=== PATIENT | male | born 1955 | race Caucasian/White ===

== ENCOUNTER 2017-01-27 04:34 | Emergency (ER) | payer OTHER ==
[2017-01-27] MEDS ORDERED: DIPH,PERTUS(ACELL)TETVAC-LF 0.5 ML VIAL IM ONE (04:45)
[2017-01-27] MEDS ORDERED: RX INFO: IV CONTRAST WAS GIVEN 1 EACH MISC MISCELLANE PRN (04:46)
[2017-01-27 04:50] VITALS: PULSE 117; RESP 20; TEMP 97.5
[2017-01-27 04:52] LABS: Glucose,Whole Blood 171 mg/dL (75-99)
[2017-01-27 04:55] VITALS: BP 70/54
[2017-01-27 04:58] LABS: Basophils # (A) 0.2 k/uL (0-0.2); Basophils % (A) 1 %; CH 33.2; CHCM 35.9; Eosinophils # (A) 0.1 k/uL (0-0.7); Eosinophils % (A) 0 %; HCT 35.6 % (39.0-53.0); HDW 2.62; HGB 12.6 gm/dL (13.0-17.5); Luc # (Auto) 0.27; Luc % (Auto) 1; Lymphocytes # (A) 1.3 k/uL (1.0-4.8); Lymphocytes % (A) 5 %; MCH 32.8 pg (25.0-35.0); MCHC 35.3 g/dL (31.0-37.0); Monocytes # (A) 1.3 k/uL (0-1.0); Monocytes % (A) 5 %; Neutrophils # (A) 23.9 k/uL (1.3-7.7); Neutrophils % (A) 88 %; RBC 3.83 m/uL (4.30-5.90); RDW 14.1 % (11.5-15.5); WBC (Perox) 25.91
[2017-01-27 05:00] LABS: WBC 27.1 k/uL (3.8-10.6)
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
[2017-01-27 05:12] LABS: ALT 73 U/L (21-72); AST 61 U/L (17-59); Alcohol <10 mg/dL; Alkaline Phosphatase 62 U/L (38-126); Amylase 54 U/L (30-110); Anion Gap 18 mmol/L; Blood Urea Nitrogen 11 mg/dL (9-20); Calcium 9.4 mg/dL (8.4-10.2); Carbon Dioxide 17 mmol/L (22-30); Chloride 93 mmol/L (98-107); Glucose 150 mg/dL (74-99); Non-African American GFR(MDRD) 39 (>60 ml/min/1.73 sqM); Potassium 3.9 mmol/L (3.5-5.1); Sodium 128 mmol/L (137-145); Total Bilirubin 0.7 mg/dL (0.2-1.3); Total Protein 6.6 g/dL (6.3-8.2)
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
[2017-01-27 05:24] LABS: Creatine Kinase 614 U/L (55-170)
[2017-01-27 05:28] LABS: INR 1.2 (<1.1); Prothrombin Time 11.6 sec (9.0-12.0)
[2017-01-27 05:37] LABS: Troponin I <0.012 ng/mL (0.000-0.034)
[2017-01-27 05:39] LABS: Creatine Kinase MB 4.6 ng/mL (0.0-2.4)
--- NOTE | 2017-01-27 05:40 | CT ---
EXAM: CT Head Without Intravenous Contrast. CLINICAL HISTORY: Reason: Pain TECHNIQUE: Axial computed tomography images of the head/brain without intravenous contrast. CTDI is 60.3 mGy and DLP is 1271.4 mGy-cm This CT exam was performed using one or more of the following dose reduction techniques: automated exposure control, adjustment of the mA and/or kV according to patient size, and/or use of iterative reconstruction technique. COMPARISON: No relevant prior studies available. FINDINGS: Brain: Unremarkable. No hemorrhage. No significant white matter disease. No edema. Ventricles: Unremarkable. No ventriculomegaly. Bones: No acute fracture. Sinuses: Mild mucosal thickening seen within bilateral maxillary, ethmoid and sphenoid sinuses. There is complete opacification of the right frontal sinus and near-complete opacification of the left frontal sinus, possibly due to rhinosinusitis. Mastoid air cells: Mild fluid opacification of the left mastoid air cells. The right mastoid air cells are normally pneumatized. IMPRESSION: No evidence of acute intracranial abnormality. Paranasal sinus mucoperiosteal disease, as above.
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
[2017-01-27] MEDS ORDERED: ceFAZolin 1,000 MG in DEXTROSE/WATER 1 50ML.BAG IVPB STA (06:00)
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
[2017-01-27] MEDS ORDERED: SODIUM CHLORIDE 0.9% 500 ML IV STA (06:44)
[2017-01-27 06:50] LABS: Appearance,Urine Clear (Clear); Bilirubin,Urine Negative (Negative); Glucose,Urine (UA) Negative (Negative); Ketones,Urine Negative (Negative); Leukocyte Esterase,Urine Negative (Negative); Nitrite,Urine Negative (Negative); PH, Urine 5.5 (5.0-8.0); Protein,Urine Trace (Negative); Specific Gravity,Urine 1.036 (1.001-1.035); UA Billing (MACRO vs. MICRO) CHEM; Urobilinogen,Urine <2.0 mg/dL (<2.0)
--- NOTE | 2017-01-27 07:13 | P.PN ---
Progress Note - Text CT report of the neck was reviewed and there is a possible injury to the thyroid cartilage and transverse process fracture. A message was given for Dr. Chavez to discuss with receiving hospital whether they would like the patient intubated prior to transfer
== END 2017-01-27 06:46 | disposition other institution (70) ==
LOC: EC 04:34
DX: S11.81XA Laceration without foreign body of other specified part of neck, initial encounter (principal); J44.9 Chronic obstructive pulmonary disease, unspecified; I10 Essential (primary) hypertension; F32.9 Major depressive disorder, single episode, unspecified; F41.9 Anxiety disorder, unspecified; E78.5 Hyperlipidemia, unspecified; F17.200 Nicotine dependence, unspecified, uncomplicated; Z23 Encounter for immunization; Z79.51 Long term (current) use of inhaled steroids; Z79.899 Other long term (current) drug therapy; X78.9XXA Intentional self-harm by unspecified sharp object, initial encounter
CPT/HCPCS: 90471 ×2; 96361 ×2; 96365 ×2; 99285 ×2; 82075; 36415; 93005; 86900; 86901; 80053; 82150; 82550; 82553; 83605; 83690; 84484; 85025; 85610; 85730; 86850; 86920; 81003; 80306; 80320; 71010; 70491; 70450; 90715; L0120; Q9967; J0690

== ENCOUNTER 2017-02-11 21:41 | Inpatient (IN) | payer OTHER ==
[2017-02-11] MEDS ORDERED: SODIUM CHLORIDE 0.9% 1,000 ML IV ONE ×3 (22:20→23:38)
[2017-02-11] MEDS ORDERED: DIAZEPAM 5 MG TAB PO STA (22:20)
[2017-02-11 22:27] LABS: Basophils # (A) 0.1 k/uL (0-0.2); Basophils % (A) 1 %; Eosinophils # (A) 0.4 k/uL (0-0.7); Eosinophils % (A) 3 %; HDW 2.52; HGB 11.2 gm/dL (13.0-17.5); Luc # (Auto) 0.24; Luc % (Auto) 2; Lymphocytes # (A) 2.2 k/uL (1.0-4.8); Lymphocytes % (A) 19 %; MCH 32.1 pg (25.0-35.0); MCV 97.2 fL (80.0-100.0); Mean Platelet Volume 7.6; Monocytes # (A) 0.8 k/uL (0-1.0); Monocytes % (A) 7 %; Neutrophils # (A) 7.8 k/uL (1.3-7.7); Neutrophils % (A) 68 %; WBC 11.5 k/uL (3.8-10.6)
[2017-02-11 22:36] LABS: Calcium 8.6 mg/dL (8.4-10.2); Magnesium 2.5 mg/dL (1.6-2.3); Potassium 4.4 mmol/L (3.5-5.1); Total Bilirubin 0.3 mg/dL (0.2-1.3); Total Protein 6.4 g/dL (6.3-8.2)
[2017-02-11 22:39] LABS: Partial Thromboplastin Time 23.7 sec (22.0-30.0); Prothrombin Time 9.9 sec (9.0-12.0)
--- NOTE | 2017-02-11 22:48 | XR ---
EXAM: XR Chest, 1 View CLINICAL HISTORY: Reason: syncope TECHNIQUE: Frontal view of the chest. COMPARISON: Chest radiograph 01/27/2017 FINDINGS: Lungs: Lungs are clear except for mild right base subsegmental atelectasis. No focal pulmonary infiltrates or consolidations. Pleural space: Unremarkable. No pneumothorax. Heart: Heart size is within normal limits. Mediastinum: Unremarkable. Bones/joints: Imaged bony thorax is unremarkable. Upper abdomen: Mild elevation of right hemidiaphragm, unchanged. No significant change since 01/27/2017. IMPRESSION: Mild right base subsegmental atelectasis. No evidence of acute cardiopulmonary disease.
[2017-02-11 23:15] LABS: Appearance,Urine Clear (Clear); Bacteria,Urine Rare /hpf; Bilirubin,Urine Negative (Negative); Glucose,Urine (UA) Negative (Negative); Ketones,Urine Negative (Negative); Leukocyte Esterase,Urine Negative (Negative); Mucus,Urine Rare /hpf; Nitrite,Urine Negative (Negative); PH, Urine 5.5 (5.0-8.0); Particle Count 6206; Protein,Urine 1+ (Negative); RBC,Urine 2 /hpf (0-5); Specific Gravity,Urine 1.016 (1.001-1.035); Sperm,Urine Occasional /hpf; UA Billing (MACRO vs. MICRO) MICRO; Urobilinogen,Urine <2.0 mg/dL (<2.0); WBC,Urine 4 /hpf (0-5)
[2017-02-12] MEDS ORDERED: SODIUM CHLORIDE 0.9% 1,000 ML IV ONE (00:05)
[2017-02-12] MEDS ORDERED: NALOXONE 0.4 MG/ML 1 ML VIAL IV PRN (00:38)
--- NOTE | 2017-02-12 00:47 | ED ---
Syncope HPI - General Chief Complaint: Syncope Stated Complaint: Syncope Time Seen by Provider: 02/11/17 21:52 Source: patient Mode of arrival: wheelchair Limitations: no limitations - History of Present Illness Initial Comments: This patient is a 61-year-old man who presents because he has been feeling worsening of generalized fatigue, he has been having orthostatic symptoms, and this evening he passed out. Patient feels extremely lightheaded when he gets up and walks. He does note that he was discharged from the hospital Friday after an admission for an injury to his neck. He was at [facility]. He was started on new medications which included Celexa, gabapentin, and Seroquel. The patient does note that his by mouth intake has been decreased as she has not really had an appetite. Patient also did just finish a course of Bactrim. Patient is denying pain or other symptoms related to the neck injury. No fever or chills. No chest pain. MD Complaint: loss of consciousness, collapsed Onset/Timin -: days(s) Prodromal Symptoms: lightheaded Injuries Sustained Associated with Event: None Current Symptoms: lightheaded Context: standing up Treatments Prior to Arrival: none - Related Data Home Medications Medication Instructions Recorded Confirmed Lisinopril [Zestril] 20 mg PO DAILY 03/11/14 02/11/17 Albuterol Inhaler [Ventolin Hfa 1 - 2 puff INHALATION RT-Q6H PRN 06/21/16 Inhaler] Albuterol Nebulized [Ventolin 2.5 mg INHALATION RT-Q4H PRN 06/21/16 02/11/17 Nebulized] Hydrochlorothiazide [Hydrodiuril] 25 mg PO DAILY 06/21/16 02/11/17 Pravastatin Sodium [Pravachol] 40 mg PO HS 06/21/16 02/11/17 Umeclidinium [place] [Incruse 62.5 mcg INHALATION RT-DAILY 06/21/16 02/11/17 Ellipta] Atenolol [Tenormin] 25 mg PO DAILY 02/11/17 02/11/17 Budesonide/Formoterol Fumarate 2 puff INHALATION RT-BID 02/11/17 02/11/17 [Symbicort 160-4.5 Mcg Inhaler] Citalopram Hydrobromide [CeleXA] 20 mg PO BID 02/11/17 02/11/17 Gabapentin [Neurontin] 300 mg PO BID 02/11/17 02/11/17 QUEtiapine [SEROquel] 50 mg PO HS 02/11/17 02/11/17 Sulfamethox-Tmp 800-160Mg [Bactrim 1 tab PO Q12HR 02/11/17 02/11/17 DS 800-160 mg] Allergies Allergy/AdvReac Type Severity Reaction Status Date / Time No Known Allergies Allergy Verified 02/11/17 22:13 Review of Systems ROS Statement: Those systems with pertinent positive or pertinent negative responses have been documented in the HPI. ROS Other: All systems not noted in ROS Statement are negative. Constitutional: Denies: fever, chills, weakness ENT: Denies: throat pain Respiratory: Denies: cough, dyspnea, wheezes, hemoptysis Cardiovascular: Reports: syncope. Denies: chest pain, palpitations, edema Gastrointestinal: Denies: abdominal pain, vomiting, diarrhea, melena, hematochezia Genitourinary: Denies: dysuria, hematuria Musculoskeletal: Denies: back pain Skin: Denies: rash Neurological: Denies: headache, numbness, paresthesias Past Medical History Past Medical History: COPD, Hyperlipidemia, Hypertension Additional Past Medical History / Comment(s): Psychiatric history History of Any Multi-Drug Resistant Organisms: None Reported Past Surgical History: Orthopedic Surgery Additional Past Surgical History / Comment(s): Lt knee arthroscopy Past Anesthesia/Blood Transfusion Reactions: No Reported Reaction Past Psychological History: No Psychological Hx Reported, Anxiety, Depression Smoking Status: Current every day smoker Past Alcohol Use History: Heavy Past Drug Use History: None Reported - Past Family History Mother Family Medical History: No Reported History General Exam Limitations: no limitations General appearance: alert, other (Patient does appear to be moderately dehydrated) Head exam: Present: atraumatic, normocephalic Eye exam: Present: normal appearance. Absent: scleral icterus, conjunctival injection ENT exam: Present: mucous membranes dry Neck exam: Present: full ROM, other (Patient has recently healed laceration to the right anterior neck. There is no erythema. No evidence of hematoma or abscess.). Absent: tenderness, meningismus, lymphadenopathy Respiratory exam: Present: normal lung sounds bilaterally. Absent: respiratory distress, wheezes, rales, rhonchi, stridor Cardiovascular Exam: Present: regular rate, normal rhythm, normal heart sounds. Absent: systolic murmur, diastolic murmur, rubs, gallop GI/Abdominal exam: Present: soft. Absent: distended, tenderness, guarding, rebound, rigid Extremities exam: Present: normal inspection, other (Delayed capillary refill). Absent: pedal edema, calf tenderness Back exam: Present: normal inspection. Absent: CVA tenderness (R), CVA tenderness (L) Neurological exam: Present: alert Skin exam: Present: warm, dry, intact, other (Poor turgor). Absent: rash Course Vital Signs 02/11/17 02/11/17 02/11/17 21:46 22:15 22:23 Temperature 99.2 F Pulse Rate 77 64 Pulse Rate [ Sitting] Pulse Rate [ Standing] Pulse Rate [ 58 L Supine] Respiratory 20 Rate Blood Pressure 110/60 59/34 Blood Pressure [Right Arm Sitting] Blood Pressure [Right Arm Standing] Blood Pressure [Right Arm Supine] O2 Sat by Pulse 95 97 Oximetry 02/11/17 02/11/17 02/11/17 22:25 22:29 22:41 Temperature 97.8 F Pulse Rate 60 Pulse Rate [ Sitting] Pulse Rate [ Standing] Pulse Rate [ Supine] Respiratory 20 Rate Blood Pressure 62/40 82/51 85/49 Blood Pressure [Right Arm Sitting] Blood Pressure [Right Arm Standing] Blood Pressure [Right Arm Supine] O2 Sat by Pulse 94 L Oximetry 02/11/17 02/11/17 02/12/17 23:09 23:27 00:06 Temperature Pulse Rate 69 66 Pulse Rate [ 67 Sitting] Pulse Rate [ 76 Standing] Pulse Rate [ 66 Supine] Respiratory 20 18 Rate Blood Pressure 79/46 87/54 Blood Pressure 78/43 [Right Arm Sitting] Blood Pressure 70/42 [Right Arm Standing] Blood Pressure 78/41 [Right Arm Supine] O2 Sat by Pulse 96 96 Oximetry 02/12/17 02/12/17 02/12/17 00:39 00:53 01:17 Temperature 97.7 F Pulse Rate 68 71 Pulse Rate [ Sitting] Pulse Rate [ Standing] Pulse Rate [ Supine] Respiratory 16 Rate Blood Pressure 83/48 94/52 83/48 Blood Pressure [Right Arm Sitting] Blood Pressure [Right Arm Standing] Blood Pressure [Right Arm Supine] O2 Sat by Pulse 97 Oximetry 02/12/17 02/12/17 02/12/17 02:19 02:41 03:18 Temperature 97.8 F Pulse Rate 70 71 71 Pulse Rate [ Sitting] Pulse Rate [ Standing] Pulse Rate [ Supine] Respiratory 18 20 18 Rate Blood Pressure 88/50 94/51 94/53 Blood Pressure [Right Arm Sitting] Blood Pressure [Right Arm Standing] Blood Pressure [Right Arm Supine] O2 Sat by Pulse 96 96 96 Oximetry 02/12/17 03:32 Temperature 97.8 F Pulse Rate Pulse Rate [ 72 Sitting] Pulse Rate [ Standing] Pulse Rate [ Supine] Respiratory 18 Rate Blood Pressure Blood Pressure 97/54 [Right Arm Sitting] Blood Pressure [Right Arm Standing] Blood Pressure [Right Arm Supine] O2 Sat by Pulse 97 Oximetry EKG Findings - EKG Results: EKG: interpreted by DELORIS APARICIO, sinus rhythm (Rate 70 bpm), normal axis, normal QRS, normal ST/T, no acute changes Medical Decision Making - Medical Decision Making This patient 61-year-old man presenting after syncopal episode who does look moderately hypovolemic/dehydrated. She is responding well to fluid hydration here in the emergency department. Case discussed with admitting physician patient be admitted to have additional fluids and nephrology consultation as well. - Lab Data Result diagrams: 02/11/17 22:15 02/11/17 22:15 Lab Results 02/11/17 02/11/17 02/11/17 Range/Units 22:15 22:15 22:15 WBC 11.5 H (3.8-10.6) k/uL RBC 3.50 L (4.30-5.90) m/uL Hgb 11.2 L (13.0-17.5) gm/dL Hct 34.0 L (39.0-53.0) % MCV 97.2 (80.0-100.0) fL MCH 32.1 (25.0-35.0) pg MCHC 33.0 (31.0-37.0) g/dL RDW 14.0 (11.5-15.5) % Plt Count 369 (150-450) k/uL Neutrophils % 68 % Lymphocytes % 19 % Monocytes % 7 % Eosinophils % 3 % Basophils % 1 % Neutrophils # 7.8 H (1.3-7.7) k/uL Lymphocytes # 2.2 (1.0-4.8) k/uL Monocytes # 0.8 (0-1.0) k/uL Eosinophils # 0.4 (0-0.7) k/uL Basophils # 0.1 (0-0.2) k/uL PT 9.9 (9.0-12.0) sec INR 1.0 (<1.2) APTT 23.7 (22.0-30.0) sec D-Dimer 0.89 H (<0.60) mg/L FEU Sodium 135 L (137-145) mmol/L Potassium 4.4 (3.5-5.1) mmol/L Chloride 101 (98-107) mmol/L Carbon Dioxide 16 L (22-30) mmol/L Anion Gap 18 mmol/L BUN 70 H (9-20) mg/dL Creatinine 8.83 H* (0.66-1.25) mg/dL Est GFR (MDRD) Af Amer 8 (>60 ml/min/1.73 sqM) Est GFR (MDRD) Non-Af 6 (>60 ml/min/1.73 sqM) Glucose 86 (74-99) mg/dL Plasma Lactic Acid Zack (0.7-2.0) mmol/L Calcium 8.6 (8.4-10.2) mg/dL Magnesium 2.5 H (1.6-2.3) mg/dL Total Bilirubin 0.3 (0.2-1.3) mg/dL AST 34 (17-59) U/L ALT 63 (21-72) U/L Alkaline Phosphatase 60 (38-126) U/L Troponin I (0.000-0.034) ng/mL Total Protein 6.4 (6.3-8.2) g/dL Albumin 4.0 (3.5-5.0) g/dL Urine Color Urine Appearance (Clear) Urine pH (5.0-8.0) Ur Specific [place] (1.001-1.035) Urine Protein (Negative) Urine Glucose (UA) (Negative) Urine Ketones (Negative) Urine Blood (Negative) Urine Nitrite (Negative) Urine Bilirubin (Negative) Urine Urobilinogen (<2.0) mg/dL Ur Leukocyte Esterase (Negative) Urine RBC (0-5) /hpf Urine WBC (0-5) /hpf Urine Bacteria (None) /hpf Urine Mucus (None) /hpf Urine Sperm (None) /hpf Urine Osmolality (50-1400) mosm/kg Ur Random Creatinine mg/dL Ur Random Sodium (30-90) mmol/L Ur Random Potassium mmol/L Serum Alcohol mg/dL 02/11/17 02/11/17 02/11/17 Range/Units 22:15 22:40 22:40 WBC (3.8-10.6) k/uL RBC (4.30-5.90) m/uL Hgb (13.0-17.5) gm/dL Hct (39.0-53.0) % MCV (80.0-100.0) fL MCH (25.0-35.0) pg MCHC (31.0-37.0) g/dL RDW (11.5-15.5) % Plt Count (150-450) k/uL Neutrophils % % Lymphocytes % % Monocytes % % Eosinophils % % Basophils % % Neutrophils # (1.3-7.7) k/uL Lymphocytes # (1.0-4.8) k/uL Monocytes # (0-1.0) k/uL Eosinophils # (0-0.7) k/uL Basophils # (0-0.2) k/uL PT (9.0-12.0) sec INR (<1.2) APTT (22.0-30.0) sec D-Dimer (<0.60) mg/L FEU Sodium (137-145) mmol/L Potassium (3.5-5.1) mmol/L Chloride (98-107) mmol/L Carbon Dioxide (22-30) mmol/L Anion Gap mmol/L BUN (9-20) mg/dL Creatinine (0.66-1.25) mg/dL Est GFR (MDRD) Af Amer (>60 ml/min/1.73 sqM) Est GFR (MDRD) Non-Af (>60 ml/min/1.73 sqM) Glucose (74-99) mg/dL Plasma Lactic Acid Zack 1.5 (0.7-2.0) mmol/L Calcium (8.4-10.2) mg/dL Magnesium (1.6-2.3) mg/dL Total Bilirubin (0.2-1.3) mg/dL AST (17-59) U/L ALT (21-72) U/L Alkaline Phosphatase (38-126) U/L Troponin I <0.012 (0.000-0.034) ng/mL Total Protein (6.3-8.2) g/dL Albumin (3.5-5.0) g/dL Urine Color Urine Appearance (Clear) Urine pH (5.0-8.0) Ur Specific [place] (1.001-1.035) Urine Protein (Negative) Urine Glucose (UA) (Negative) Urine Ketones (Negative) Urine Blood (Negative) Urine Nitrite (Negative) Urine Bilirubin (Negative) Urine Urobilinogen (<2.0) mg/dL Ur Leukocyte Esterase (Negative) Urine RBC (0-5) /hpf Urine WBC (0-5) /hpf Urine Bacteria (None) /hpf Urine Mucus (None) /hpf Urine Sperm (None) /hpf Urine Osmolality (50-1400) mosm/kg Ur Random Creatinine mg/dL Ur Random Sodium (30-90) mmol/L Ur Random Potassium mmol/L Serum Alcohol <10 mg/dL 02/11/17 02/11/17 02/11/17 Range/Units 23:01 23:01 23:01 WBC (3.8-10.6) k/uL RBC (4.30-5.90) m/uL Hgb (13.0-17.5) gm/dL Hct (39.0-53.0) % MCV (80.0-100.0) fL MCH (25.0-35.0) pg MCHC (31.0-37.0) g/dL RDW (11.5-15.5) % Plt Count (150-450) k/uL Neutrophils % % Lymphocytes % % Monocytes % % Eosinophils % % Basophils % % Neutrophils # (1.3-7.7) k/uL Lymphocytes # (1.0-4.8) k/uL Monocytes # (0-1.0) k/uL Eosinophils # (0-0.7) k/uL Basophils # (0-0.2) k/uL PT (9.0-12.0) sec INR (<1.2) APTT (22.0-30.0) sec D-Dimer (<0.60) mg/L FEU Sodium (137-145) mmol/L Potassium (3.5-5.1) mmol/L Chloride (98-107) mmol/L Carbon Dioxide (22-30) mmol/L Anion Gap mmol/L BUN (9-20) mg/dL Creatinine (0.66-1.25) mg/dL Est GFR (MDRD) Af Amer (>60 ml/min/1.73 sqM) Est GFR (MDRD) Non-Af (>60 ml/min/1.73 sqM) Glucose (74-99) mg/dL Plasma Lactic Acid Zack (0.7-2.0) mmol/L Calcium (8.4-10.2) mg/dL Magnesium (1.6-2.3) mg/dL Total Bilirubin (0.2-1.3) mg/dL AST (17-59) U/L ALT (21-72) U/L Alkaline Phosphatase (38-126) U/L Troponin I (0.000-0.034) ng/mL Total Protein (6.3-8.2) g/dL Albumin (3.5-5.0) g/dL Urine Color Yellow Urine Appearance Clear (Clear) Urine pH 5.5 (5.0-8.0) Ur Specific [place] 1.016 (1.001-1.035) Urine Protein 1+ H (Negative) Urine Glucose (UA) Negative (Negative) Urine Ketones Negative (Negative) Urine Blood Negative (Negative) Urine Nitrite Negative (Negative) Urine Bilirubin Negative (Negative) Urine Urobilinogen <2.0 (<2.0) mg/dL Ur Leukocyte Esterase Negative (Negative) Urine RBC 2 (0-5) /hpf Urine WBC 4 (0-5) /hpf Urine Bacteria Rare H (None) /hpf Urine Mucus Rare H (None) /hpf Urine Sperm Occasional H (None) /hpf Urine Osmolality 632 (50-1400) mosm/kg Ur Random Creatinine 168.8 mg/dL Ur Random Sodium 106 H (30-90) mmol/L Ur Random Potassium 62.6 mmol/L Serum Alcohol mg/dL Disposition Clinical Impression: Acute renal failure, Hypotension Disposition: ADMITTED IP TO THIS HOSP Condition: Serious
[2017-02-12 01:16] LABS: Potassium,Urine Random 62.6 mmol/L
[2017-02-12] MEDS: SODIUM CHLORIDE 0.9% 1,000 ML IV SCH ×2 (01:16→20:25)
--- NOTE | 2017-02-12 01:43 | US ---
EXAM: US Retroperitoneal Limited, Renal CLINICAL HISTORY: Reason: acute renal failure TECHNIQUE: Real-time ultrasound of the retroperitoneum (limited) with image documentation. COMPARISON: No relevant prior studies available. FINDINGS: Right kidney: No evidence of renal obstruction or hydronephrosis. Right kidney measured 10.8 x 6.2 x 5.9 cm Left kidney: Kidneys are of normal size and echotexture bilaterally. 3.2 cm exophytic cyst along inferior pole of left kidney. No renal masses identified. No renal calculi are ultrasonographically evident. Left kidney measured 11.4 x 5.8 x 5.9 cm Bladder: Urinary bladder is unremarkable. Bilateral ureteral jets identified. IMPRESSION: Left renal cyst. No other significant renal abnormalities. No evidence of renal obstruction or hydronephrosis.
[2017-02-12 04:25] VITALS: BMI 31.5
[2017-02-12 10:24] LABS: Aty Lym Flag Marked; CH 31.2; Hypochromasia Slight
[2017-02-12 10:31] LABS: Basophils # (A) 0.1 k/uL (0-0.2); Basophils % (A) 1 %; CHCM 31.8; Eosinophils # (A) 0.3 k/uL (0-0.7); Eosinophils % (A) 3 %; HCT 28.4 % (39.0-53.0); HDW 2.51; Luc # (Auto) 0.19; Luc % (Auto) 2; Lymphocytes # (A) 1.2 k/uL (1.0-4.8); Lymphocytes % (A) 14 %; MCH 32.5 pg (25.0-35.0); MCHC 33.1 g/dL (31.0-37.0); MCV 98.3 fL (80.0-100.0); Mean Platelet Volume 7.4; Monocytes # (A) 0.6 k/uL (0-1.0); Monocytes % (A) 6 %; Neutrophils # (A) 6.3 k/uL (1.3-7.7); Neutrophils % (A) 74 %; RBC 2.89 m/uL (4.30-5.90); RDW 13.6 % (11.5-15.5); WBC 8.6 k/uL (3.8-10.6); WBC (Perox) 9.12
[2017-02-12 10:33] LABS: HGB 9.4 gm/dL (13.0-17.5)
[2017-02-12 10:46] LABS: Calcium 7.5 mg/dL (8.4-10.2); Potassium 5.1 mmol/L (3.5-5.1)
--- NOTE | 2017-02-12 10:52 | P.NPCON ---
History of Present Illness - Reason for Consult acute renal failure - History of Present Illness Reason for consultation: Acute kidney injury History of present illness: Patient is a 61-year-old male seen in renal consultation for acute kidney injury. His creatinine on 01/27/2017 was 1.8 and prior to that he was 0.7. His creatinine this admission is elevated at 8.83. Patient presented to the hospital with generalized weakness as well as lightheadedness and dizziness. Patient states he also passed out about twice. He states it was for a very short time and he got back up right away. He is noted to have systolic blood pressure in the range of 70s to 90s. Patient was recently admitted to [facility] for neck abscess and has just completed a course of Bactrim. It is noted that he was also taking hydrochlorothiazide at home. His urinalysis is quite benign. No history of diabetes. No vomiting or diarrhea. Does admit to using Aleve as needed. He states he took Aleve about twice in the last 1 week. He was having decrease in urination for the last few days but states his urine output has picked up while in the hospital. He is currently maintained on normal saline at 125 mL an hour. Denies any family history of renal disease. Vital signs are stable. General: The patient appeared well nourished and normally developed. HEENT: Head exam is unremarkable. Neck is without jugular venous distension. LUNGS: Lungs are clear to auscultation and percussion. Breath sounds decreased. HEART: Rate and Rhythm are regular. First and second heart sounds normal. No murmurs, rubs or gallops. ABDOMEN: Abdominal exam reveals normal bowel sounds. Non-tender and non- distended. No evidence of peritonitis. EXTREMITITES: No clubbing, cyanosis, or edema. Past Medical History Past Medical History: COPD, Hyperlipidemia, Hypertension Additional Past Medical History / Comment(s): Psychiatric history History of Any Multi-Drug Resistant Organisms: None Reported Past Surgical History: Orthopedic Surgery Additional Past Surgical History / Comment(s): Lt knee arthroscopy Past Anesthesia/Blood Transfusion Reactions: No Reported Reaction Past Psychological History: No Psychological Hx Reported, Anxiety, Depression Smoking Status: Current every day smoker Past Alcohol Use History: Heavy Past Drug Use History: None Reported - Past Family History Mother Family Medical History: No Reported History Medications and Allergies Home Medications Medication Instructions Recorded Confirmed Type Lisinopril [Zestril] 20 mg PO DAILY 03/11/14 02/11/17 History Albuterol Inhaler [Ventolin Hfa 1 - 2 puff INHALATION RT-Q6H PRN 06/21/16 History Inhaler] Albuterol Nebulized [Ventolin 2.5 mg INHALATION RT-Q4H PRN 06/21/16 02/11/17 History Nebulized] Hydrochlorothiazide [Hydrodiuril] 25 mg PO DAILY 06/21/16 02/11/17 History Pravastatin Sodium [Pravachol] 40 mg PO HS 06/21/16 02/11/17 History Umeclidinium [place] [Incruse 62.5 mcg INHALATION RT-DAILY 06/21/16 02/11/17 History Ellipta] Atenolol [Tenormin] 25 mg PO DAILY 02/11/17 02/11/17 History Budesonide/Formoterol Fumarate 2 puff INHALATION RT-BID 02/11/17 02/11/17 History [Symbicort 160-4.5 Mcg Inhaler] Citalopram Hydrobromide [CeleXA] 20 mg PO BID 02/11/17 02/11/17 History Gabapentin [Neurontin] 300 mg PO BID 02/11/17 02/11/17 History QUEtiapine [SEROquel] 50 mg PO HS 02/11/17 02/11/17 History Sulfamethox-Tmp 800-160Mg [Bactrim 1 tab PO Q12HR 02/11/17 02/11/17 History DS 800-160 mg] Allergies Allergy/AdvReac Type Severity Reaction Status Date / Time No Known Allergies Allergy Verified 02/11/17 22:13 Physical Exam Vitals: Vital Signs Temp Pulse Pulse Pulse Pulse Resp BP 02/12/17 07:57 97.5 F L 70 16 02/12/17 04:15 97.8 F 72 18 02/12/17 03:32 97.8 F 72 18 02/12/17 03:18 97.8 F 71 18 94/53 02/12/17 02:41 71 20 94/51 02/12/17 02:19 70 18 88/50 02/12/17 01:17 97.7 F 71 16 83/48 02/12/17 00:53 94/52 02/12/17 00:39 68 83/48 02/12/17 00:06 66 18 87/54 02/11/17 23:27 69 20 79/46 02/11/17 23:09 67 76 66 02/11/17 22:41 97.8 F 60 20 85/49 02/11/17 22:29 82/51 02/11/17 22:25 62/40 02/11/17 22:23 64 59/34 02/11/17 22:15 58 L 02/11/17 21:46 99.2 F 77 20 110/60 BP BP BP BP Pulse Ox 02/12/17 07:57 93/53 97 02/12/17 04:15 97/54 97 02/12/17 03:32 97/54 97 02/12/17 03:18 96 02/12/17 02:41 96 02/12/17 02:19 96 02/12/17 01:17 97 02/12/17 00:53 02/12/17 00:39 02/12/17 00:06 96 02/11/17 23:27 96 02/11/17 23:09 78/43 70/42 78/41 02/11/17 22:41 94 L 02/11/17 22:29 02/11/17 22:25 02/11/17 22:23 97 02/11/17 22:15 02/11/17 21:46 95 Intake and Output 02/11/17 02/12/17 02/12/17 22:59 06:59 14:59 Intake Total 4300 240 Output Total 700 850 Balance 3600 -610 Intake: Amount of Fluid Infused ( 4300 ml) Oral 240 Output: Urine 700 850 Straight 100 Other: # Voids 1 Weight 99.79 kg 102.6 kg Results - Lab Results Most recent lab results Calcium 8.6 mg/dL (8.4-10.2) 02/11/17 22:15 Magnesium 2.5 mg/dL (1.6-2.3) H 02/11/17 22:15 02/12/17 10:05 02/11/17 22:15 Assessment and Plan Plan: Assessment: #1. Nonoliguric acute kidney injury mostly prerenal secondary to hypotension and further worsened with the use of hydrochlorothiazide as well as NSAIDs. Rule out urinary retention. Urinalysis is quite benign. No evidence of hydronephrosis. #2. Hypotension related to antihypertensives. Also check cortisol level. #3. Metabolic acidosis secondary to acute kidney injury. Plan: Maintain normal saline at 1 25 mL an hour. Check postvoid residual and to insert Cote catheter greater than 250 mL present. Avoid nephrotoxic agents and hypotensive episodes. Diuretics held at this time. Check cortisol level. Add oral sodium bicarbonate supplementation. Repeat electrolytes in the morning. Thank you for the consultation. I will continue to follow the patient with you during his hospital stay.
--- NOTE | 2017-02-12 14:13 | P.HPIM ---
History of Present Illness H&P Date: 02/12/17 Chief Complaint: fatigue This a 61-year-WM, well known to me who presented to the ER for generalized fatigue, he has been having dizzyness, and this evening he passed out. Patient feels extremely lightheaded when he gets up and walks. He does note that he was discharged from the hospital Friday after an admission for an injury to his neck in an apparent suicide attempt. He was at [facility] for this. After trauma treatment, he was seen for depression. He was started on new medications which included Celexa, gabapentin, and Seroquel. He takes Lisiniopril/hctz for BP.Patient also did just finish a course of Bactrim. He states his oral intake has been decreased as he has not really had an appetite. Patient is denying pain or other symptoms related to the neck injury. No fever or chills. No chest pain, pressures, SOB. He was found to be in acute renal failure with significantly eleveated BUN/CR. Iv fluids have been started and offending meds held. Review of Systems All systems: negative Past Medical History Past Medical History: COPD, Hyperlipidemia, Hypertension History of Any Multi-Drug Resistant Organisms: None Reported Past Surgical History: Orthopedic Surgery Additional Past Surgical History / Comment(s): Lt knee arthroscopy. surgical repair of neck laceration Past Anesthesia/Blood Transfusion Reactions: No Reported Reaction Past Psychological History: No Psychological Hx Reported, Anxiety, Depression Additional Psychological History / Comment(s): recent suicide attempt Smoking Status: Current every day smoker Past Alcohol Use History: Heavy Past Drug Use History: None Reported - Past Family History Mother Family Medical History: No Reported History Medications and Allergies Home Medications Medication Instructions Recorded Confirmed Type Lisinopril [Zestril] 20 mg PO DAILY 03/11/14 02/11/17 History Albuterol Inhaler [Ventolin Hfa 1 - 2 puff INHALATION RT-Q6H PRN 06/21/16 History Inhaler] Albuterol Nebulized [Ventolin 2.5 mg INHALATION RT-Q4H PRN 06/21/16 02/11/17 History Nebulized] Hydrochlorothiazide [Hydrodiuril] 25 mg PO DAILY 06/21/16 02/11/17 History Pravastatin Sodium [Pravachol] 40 mg PO HS 06/21/16 02/11/17 History Umeclidinium [place] [Incruse 62.5 mcg INHALATION RT-DAILY 06/21/16 02/11/17 History Ellipta] Atenolol [Tenormin] 25 mg PO DAILY 02/11/17 02/11/17 History Budesonide/Formoterol Fumarate 2 puff INHALATION RT-BID 02/11/17 02/11/17 History [Symbicort 160-4.5 Mcg Inhaler] Citalopram Hydrobromide [CeleXA] 20 mg PO BID 02/11/17 02/11/17 History Gabapentin [Neurontin] 300 mg PO BID 02/11/17 02/11/17 History QUEtiapine [SEROquel] 50 mg PO HS 02/11/17 02/11/17 History Sulfamethox-Tmp 800-160Mg [Bactrim 1 tab PO Q12HR 02/11/17 02/11/17 History DS 800-160 mg] Allergies Allergy/AdvReac Type Severity Reaction Status Date / Time No Known Allergies Allergy Verified 02/11/17 22:13 Physical Exam Vitals: Vital Signs Temp Pulse Pulse Pulse Pulse Resp BP 02/12/17 11:27 98.7 F 68 20 02/12/17 07:57 97.5 F L 70 16 02/12/17 04:15 97.8 F 72 18 02/12/17 03:32 97.8 F 72 18 02/12/17 03:18 97.8 F 71 18 94/53 02/12/17 02:41 71 20 94/51 02/12/17 02:19 70 18 88/50 02/12/17 01:17 97.7 F 71 16 83/48 02/12/17 00:53 94/52 02/12/17 00:39 68 83/48 02/12/17 00:06 66 18 87/54 02/11/17 23:27 69 20 79/46 02/11/17 23:09 67 76 66 02/11/17 22:41 97.8 F 60 20 85/49 02/11/17 22:29 82/51 02/11/17 22:25 62/40 02/11/17 22:23 64 59/34 02/11/17 22:15 58 L 02/11/17 21:46 99.2 F 77 20 110/60 BP BP BP BP Pulse Ox 02/12/17 11:27 99/59 96 02/12/17 07:57 93/53 97 02/12/17 04:15 97/54 97 02/12/17 03:32 97/54 97 02/12/17 03:18 96 02/12/17 02:41 96 02/12/17 02:19 96 02/12/17 01:17 97 02/12/17 00:53 02/12/17 00:39 02/12/17 00:06 96 02/11/17 23:27 96 02/11/17 23:09 78/43 70/42 78/41 02/11/17 22:41 94 L 02/11/17 22:29 02/11/17 22:25 02/11/17 22:23 97 02/11/17 22:15 02/11/17 21:46 95 Intake and Output 02/11/17 02/12/17 02/12/17 22:59 06:59 14:59 Intake Total 4300 480 Output Total 700 1421 Balance 3600 -941 Intake: Amount of Fluid Infused ( 4300 ml) Oral 480 Output: Urine 700 1000 Straight 100 Post Void Residual 421 Other: # Voids 1 Weight 99.79 kg 102.6 kg - Constitutional General appearance: average body habitus - EENT Eyes: EOMI, PERRLA - Neck Neck: no lymphadenopathy, no thyromegaly Thyroid: bilateral: normal size - Respiratory Respiratory: bilateral: CTA - Cardiovascular Rhythm: regular Heart sounds: normal: S1, S2 Abnormal Heart Sounds: no systolic murmur - Gastrointestinal General gastrointestinal: no hepatomegaly, no splenomegaly - Musculoskeletal Musculoskeletal: generalized weakness Results CBC & Chem 7: 02/12/17 10:05 02/12/17 10:05 Labs: Abnormal Lab Results - Last 24 Hours (Table) 02/11/17 02/11/17 02/11/17 Range/Units 22:15 22:15 22:15 WBC 11.5 H (3.8-10.6) k/uL RBC 3.50 L (4.30-5.90) m/uL Hgb 11.2 L (13.0-17.5) gm/dL Hct 34.0 L (39.0-53.0) % Neutrophils # 7.8 H (1.3-7.7) k/uL D-Dimer 0.89 H (<0.60) mg/L FEU Sodium 135 L (137-145) mmol/L Chloride (98-107) mmol/L Carbon Dioxide 16 L (22-30) mmol/L BUN 70 H (9-20) mg/dL Creatinine 8.83 H* (0.66-1.25) mg/dL Glucose (74-99) mg/dL Calcium (8.4-10.2) mg/dL Magnesium 2.5 H (1.6-2.3) mg/dL Urine Protein (Negative) Urine Bacteria (None) /hpf Urine Mucus (None) /hpf Urine Sperm (None) /hpf Ur Random Sodium (30-90) mmol/L 02/11/17 02/11/17 02/12/17 Range/Units 23:01 23:01 10:05 WBC (3.8-10.6) k/uL RBC 2.89 L (4.30-5.90) m/uL Hgb 9.4 L D (13.0-17.5) gm/dL Hct 28.4 L (39.0-53.0) % Neutrophils # (1.3-7.7) k/uL D-Dimer (<0.60) mg/L FEU Sodium (137-145) mmol/L Chloride (98-107) mmol/L Carbon Dioxide (22-30) mmol/L BUN (9-20) mg/dL Creatinine (0.66-1.25) mg/dL Glucose (74-99) mg/dL Calcium (8.4-10.2) mg/dL Magnesium (1.6-2.3) mg/dL Urine Protein 1+ H (Negative) Urine Bacteria Rare H (None) /hpf Urine Mucus Rare H (None) /hpf Urine Sperm Occasional H (None) /hpf Ur Random Sodium 106 H (30-90) mmol/L 02/12/17 Range/Units 10:05 WBC (3.8-10.6) k/uL RBC (4.30-5.90) m/uL Hgb (13.0-17.5) gm/dL Hct (39.0-53.0) % Neutrophils # (1.3-7.7) k/uL D-Dimer (<0.60) mg/L FEU Sodium (137-145) mmol/L Chloride 110 H (98-107) mmol/L Carbon Dioxide 15 L (22-30) mmol/L BUN 66 H (9-20) mg/dL Creatinine 7.38 H* (0.66-1.25) mg/dL Glucose 73 L (74-99) mg/dL Calcium 7.5 L (8.4-10.2) mg/dL Magnesium (1.6-2.3) mg/dL Urine Protein (Negative) Urine Bacteria (None) /hpf Urine Mucus (None) /hpf Urine Sperm (None) /hpf Ur Random Sodium (30-90) mmol/L Thrombosis Risk Factor Assmnt - DVT/VTE Prophylaxis DVT/VTE Prophylaxis: Low risk, early ambulation encouraged - Choose All That Apply Any of the Below Risk Factors Present?: Yes Each Factor Represents 1 point: Age 41-60 years Other Risk Factors: No Other congenital or acquired thrombophilia - If yes, enter type in comment: No Thrombosis Risk Factor Assessment Total Risk Factor Score: 1 Thrombosis Risk Factor Assessment Level: Low Risk Assessment and Plan Plan: acute renal failure: most likely due to Bactrim/Lisinorpil/HCTZ/dehydration, consult Nephrology, iv fluid hydration, hol offending agents Depression with Recent Suicide attempt: consult psych as he is NOT tolreating his current meds, change celexa to Lexapro HTN: monitor BP Hyperlipidemai: outpt F/U COPD: continue updrafts as needed of Duoneb, spiriva He will be reevaluated in the next 24 hrs
[2017-02-12] MEDS ORDERED: ADENOSINE 3 MG/ML 2 ML VIAL IVP ONE (17:04)
[2017-02-13] MEDS: SODIUM CHLORIDE 0.9% 1,000 ML IV SCH ×4 (01:45→20:20)
[2017-02-13] MEDS: SODIUM BICARBONATE TAB 650 MG TAB PO SCH ×3 (01:45→20:21)
[2017-02-13 06:52] LABS: Basophils # (A) 0.1 k/uL (0-0.2); Basophils % (A) 1 %; CH 31.6; CHCM 32.7; Eosinophils # (A) 0.3 k/uL (0-0.7); Eosinophils % (A) 4 %; HCT 29.7 % (39.0-53.0); HDW 2.53; HGB 9.8 gm/dL (13.0-17.5); Luc # (Auto) 0.16; Luc % (Auto) 2; Lymphocytes # (A) 1.1 k/uL (1.0-4.8); Lymphocytes % (A) 16 %; MCHC 32.9 g/dL (31.0-37.0); MCV 97.1 fL (80.0-100.0); Mean Platelet Volume 7.2; Monocytes # (A) 0.6 k/uL (0-1.0); Monocytes % (A) 8 %; Neutrophils # (A) 5.1 k/uL (1.3-7.7); Neutrophils % (A) 70 %; RBC 3.06 m/uL (4.30-5.90); RDW 13.7 % (11.5-15.5); WBC 7.4 k/uL (3.8-10.6); WBC (Perox) 7.79
[2017-02-13 07:09] LABS: Potassium 5.3 mmol/L (3.5-5.1)
--- NOTE | 2017-02-13 09:18 | P.PN ---
Subjective Patient is seen in follow-up for acute kidney injury. His creatinine was 8.8 on admission and is down to 4.2 today. Patient presented with generalized weakness as well as syncopal episodes. He was extremely hypotensive on admission. Patient has just completed a course of Bactrim for an infection in his neck prior to admission. He was also taking Aleve for pain control and diuretics for hypertension as an outpatient. He is currently maintained on IV fluids. He feels well. States his urine output has improved significantly. Denies chest pain or shortness of breath. Vital signs are stable. General: The patient appeared well nourished and normally developed. HEENT: Head exam is unremarkable. Neck is without jugular venous distension. LUNGS: Lungs are clear to auscultation and percussion. Breath sounds decreased. HEART: Rate and Rhythm are regular. First and second heart sounds normal. No murmurs, rubs or gallops. ABDOMEN: Abdominal exam reveals normal bowel sounds. Non-tender and non- distended. No evidence of peritonitis. EXTREMITITES: No clubbing, cyanosis, or edema. Objective - Vital Signs Vital signs: Vital Signs Temp 98.1 F 02/13/17 04:00 Pulse 70 02/13/17 04:00 Resp 18 02/13/17 04:00 BP 106/63 02/13/17 04:00 Pulse Ox 95 02/13/17 04:00 Intake & Output 02/12/17 02/13/17 02/13/17 18:59 06:59 18:59 Intake Total 1720 1480 240 Output Total 3221 4200 1700 Balance -1501 -2720 -1460 Weight 101 kg Intake: Intake, IV Titration 1000 1000 Amount Sodium Chloride 0.9% 1, 1000 1000 000 ml @ 125 mls/hr IV . Q8H [facility] Rx#:[id number] Oral 720 480 240 Output: Urine 2800 4200 1700 Post Void Residual 421 Other: Voiding Method Indwelling Catheter Indwelling Catheter Indwelling Catheter # Voids 1 - Labs CBC & Chem 7: 02/13/17 05:37 02/13/17 05:37 Labs: Abnormal Lab Results - Last 24 Hours (Table) 02/12/17 02/12/17 02/13/17 Range/Units 10:05 10:05 05:37 RBC 2.89 L 3.06 L (4.30-5.90) m/uL Hgb 9.4 L D 9.8 L (13.0-17.5) gm/dL Hct 28.4 L 29.7 L (39.0-53.0) % Potassium (3.5-5.1) mmol/L Chloride 110 H (98-107) mmol/L Carbon Dioxide 15 L (22-30) mmol/L BUN 66 H (9-20) mg/dL Creatinine 7.38 H* (0.66-1.25) mg/dL Glucose 73 L (74-99) mg/dL Calcium 7.5 L (8.4-10.2) mg/dL 02/13/17 Range/Units 05:37 RBC (4.30-5.90) m/uL Hgb (13.0-17.5) gm/dL Hct (39.0-53.0) % Potassium 5.3 H (3.5-5.1) mmol/L Chloride 110 H (98-107) mmol/L Carbon Dioxide 17 L (22-30) mmol/L BUN 50 H (9-20) mg/dL Creatinine 4.20 H (0.66-1.25) mg/dL Glucose (74-99) mg/dL Calcium 8.0 L (8.4-10.2) mg/dL Assessment and Plan Plan: Assessment: #1. Nonoliguric acute kidney injury mostly prerenal secondary to hypotension and further worsened with the use of hydrochlorothiazide as well as NSAIDs. Urinalysis is quite benign. No evidence of hydronephrosis. Improving. Creatinine was 8.8 on admission and is down to 4.2 today. #2. Hypotension related to antihypertensives. Cortisol level IX. #3. Metabolic acidosis secondary to acute kidney injury. #4. Mild hyperkalemia secondary to acute kidney injury and metabolic acidosis. Plan: Maintain normal saline at 125 mL an hour. Avoid nephrotoxic agents and hypotensive episodes. Diuretics held at this time. Continue oral sodium bicarbonate supplementation. Low potassium diet. Repeat electrolytes in the morning.
[2017-02-13] MEDS: IPRATROPIUM-ALBUTEROL 3 ML NEB INHALATION SCH ×3 (09:30→20:38)
--- NOTE | 2017-02-13 14:14 | P.CN ---
Psychiatric Consult - . Consult date: 02/13/17 Consult:: 02/13/17 13:51 DATE OF SERVICE: 02/13/2017 IDENTIFYING DATA: This patient is a 61-year-old male admitted to sixth floor medical bed for acute renal failure(acute kidney injury) . HISTORY OF PRESENT ILLNESS: The patient presents with history of anxiety and depressed mood related to a number of setbacks. Patient states that he has not been working for 8 months now and that he just received notification from the nurses licensing board related to a complaint. That along with the fact his mother is in a alf with dementia and his sister who has been primarily managing her affairs became ill so that he has had to help out. Patient reports that he was taking Xanax for about 25 years for anxiety and then he was drinking a bit more than he should have and became despondent and cut his neck in an attempt to kill himself. He was admitted to [facility] on the medical surgical floor there for 3-4 days he was then cleared and transferred to the psychiatric floor. While there he was tapered off of Xanax over 7 days. Was then started on gabapentin, Seroquel, and Celexa. Then in the last few days he began having problems with his blood pressure, he fell several times and it became clear that he also had some kidney issues. This led to a creatinine of 8.8 he was admitted here fluids were pushed and it's improving. Patient reports that in the last 3 days he's been off of his psychiatric meds and he is feeling better, although he is beginning to feel a bit anxious. Patient denies suicidal ideation. He has future plans with goal to be employed has applied for a couple of jobs. His 21-year-old son lives with him and his ex - is supportive of him. PAST PSYCHIATRIC HISTORY: Patient denies any previous psychiatric problems other than anxiety the only psychiatric hospitalization was the one that just occurred at [facility]. PAST MEDICAL HISTORY: Per record. ALLERGIES: No known drug allergies. CHEMICAL DEPENDENCY HISTORY: Patient reports that he was drinking more alcohol prior to his suicide attempt, says that he was drinking about 4-5 drinks 4-5 days per week. Denies other drugs of abuse. FAMILY PSYCHIATRIC HISTORY: Denies family history of psychiatric problems. FAMILY CHEMICAL DEPENDENCY HISTORY: Denies. LEGAL HISTORY: Denies. SOCIAL HISTORY: Patient is a nurse, he is he and his ex- are friends and she is a support for him. Patient's 21-year-old son lives with him. They have another son who is living with his ex-. Patient is unemployed and recognizes that that lack of work has not been helpful to him. He is worried about his mother.. MENTAL STATUS EXAM: Patient alert and oriented 3, good eye contact, fair groomed in hospital attire. Speech normal volume, rate and production. Coherent, logical and goal directed thought process. No SONU, no FOI. No TB/TW/ TI Denied auditory and visual hallucinations. Denied paranoid ideation, delusions or IOR. Memory intact Cognition average Mood neutral, affect full range, decreased intensity, congruent with mood. Denies suicidal ideation, denies homicidal ideation. Insight partial; Judgment grossly intact for treatment purposes . IMPRESSIONS: 61-year-old male, made a serious suicide attempt after several stressors, and increase of etoh intake. Patient was tapered off of his benzodiazepine of 25 years in a week's time, he was also prescribed Seroquel at bedtime, gabapentin throughout the day and Celexa for an antidepressant. He returned home never quite feeling back to his normal self, feeling cognitively impaired, and not being able to drive. He then began to have medical problems related to hypotension and an acute renal injury. With creatinine of 8.8 leading to hospitalization here. His creatinine is now down to 4.4 he is cognitively clear. Patient more than likely has a diagnosis of depression, alcohol use disorder, moderate use, in early remission. Patient is not suicidal, no evidence of psychosis, no past history of psychiatric illnesses or admissions other than the one just previous. Patient does not need inpatient psychiatry treatment. Depression, unspecified Alcohol use disorder, moderate, in early remission PLAN: Patient was taking Xanax for a number of years and I would recommend he have a slower taper than what occurred in the hospital. 1.Clonazepam 1 mg by mouth twice a day for 30 days, then reduce by 50% (0.5mg BID)for 30 days, reduced by another 50% (.25mg BID)for 30 days, reduce by 50%( 0.25mg QDAY) for 30 days, then stop. 2.Remeron 15 mg for both its antidepressant/antianxiety/sleep properties. Due to shortage of psychiatrists in the area primary care doctor should be able to prescribe these meds until he is able to meet with a psychiatrist. I spoke to the case finisher of the unit Shelley, and she will have the clinical social worker meet with patient and refer to [facility]. 02/13/17 14:15
--- NOTE | 2017-02-13 19:08 | P.PN ---
Subjective Principal diagnosis: Acute renal failure, most likely due to Bactrim lisinopril hydrochlorothiazide and dehydration Patient is admitted for acute kidney injury. His creatinine was a finding on admission was found to 4.2 today. Patient presented with generalized weakness as well as syncopal episode. He was extremely hypotensive on admission and is currently on IV fluids. Urinary output has improved Objective - Vital Signs Vital signs: Vital Signs Temp 97.5 F L 02/13/17 15:22 Pulse 82 02/13/17 15:22 Resp 20 02/13/17 15:22 BP 121/82 02/13/17 15:22 Pulse Ox 96 02/13/17 15:22 Intake & Output 02/12/17 02/13/17 02/13/17 18:59 06:59 18:59 Intake Total 1720 1480 1720 Output Total 3221 4200 3250 Balance -1501 -4680 -1530 Weight 101 kg Intake: Intake, IV Titration 1000 1000 1000 Amount Sodium Chloride 0.9% 1, 1000 1000 1000 000 ml @ 125 mls/hr IV . Q8H [facility] Rx#:[id number] Oral 720 480 720 Output: Urine 2800 4200 3250 Post Void Residual 421 Other: Voiding Method Indwelling Catheter Indwelling Catheter Indwelling Catheter # Voids 1 - Exam General: [Patient awake, alert and oriented times 3. Patient in no acute distress.] HEENT: [PERRL. EOMI. No pharyngeal erythema or exudate.] Neck: [No adenopathy.] Cardiac: [Heart regular in rate and rhythm. No S3. No S4. No clicks, rubs. No murmur.] Lungs: [Clear to auscultation bilaterally.] Abdomen: [No mass. No organomegaly. Bowel sounds presnt and normoactive in all 4 quadrants.] Extremes: [No edema no cyanosis no claudication normal pulses] : [] Musculoskeletal: [No joint erythema, edema or tenderness.] Skin: [No rash.] Neurologic: [No lateralizing deficits. CN II - XII grossly intact.] Lymphatic: [No adenopathy.] - Labs CBC & Chem 7: 02/13/17 05:37 02/13/17 05:37 Labs: Abnormal Lab Results - Last 24 Hours (Table) 02/13/17 02/13/17 Range/Units 05:37 05:37 RBC 3.06 L (4.30-5.90) m/uL Hgb 9.8 L (13.0-17.5) gm/dL Hct 29.7 L (39.0-53.0) % Potassium 5.3 H (3.5-5.1) mmol/L Chloride 110 H (98-107) mmol/L Carbon Dioxide 17 L (22-30) mmol/L BUN 50 H (9-20) mg/dL Creatinine 4.20 H (0.66-1.25) mg/dL Calcium 8.0 L (8.4-10.2) mg/dL Assessment and Plan (1) Acute renal failure Narrative/Plan: #1 nonoliguric acute kidney injury most the prerenal secondary to hypotension further worsened with use of hydrochlorothiazide as well as NSAIDs #2 hypotension related to antihypertensives #3 metabolic acidosis secondary to a kidney injury #4 mild hyperkalemia secondary to acute anemia and metabolic Plan: IV fluids normal saline Avoid nephrotoxic agents and hypotensive episodes Diuretics were held at this time Status: Acute
[2017-02-14] MEDS: SODIUM CHLORIDE 0.9% 1,000 ML IV SCH ×4 (00:14→11:40)
[2017-02-14 04:27] VITALS: RESP 16
[2017-02-14 07:59] LABS: Calcium 8.1 mg/dL (8.4-10.2); Potassium 5.1 mmol/L (3.5-5.1)
[2017-02-14] MEDS ORDERED: SODIUM BICARBONATE TAB 650 MG TAB PO SCH (08:03)
--- NOTE | 2017-02-14 08:31 | P.PN ---
Subjective Patient is seen in follow-up for acute kidney injury. His creatinine was 8.8 on admission and is down to 1.88 today. Patient presented with generalized weakness as well as syncopal episodes. He was extremely hypotensive on admission. Patient has just completed a course of Bactrim for an infection in his neck prior to admission. He was also taking Aleve for pain control and diuretics for hypertension as an outpatient. He is currently maintained on IV fluids. He feels well. States his urine output has improved significantly. Denies chest pain or shortness of breath. No active complaints at this time. Vital signs are stable. General: The patient appeared well nourished and normally developed. HEENT: Head exam is unremarkable. Neck is without jugular venous distension. LUNGS: Lungs are clear to auscultation and percussion. Breath sounds decreased. HEART: Rate and Rhythm are regular. First and second heart sounds normal. No murmurs, rubs or gallops. ABDOMEN: Abdominal exam reveals normal bowel sounds. Non-tender and non- distended. No evidence of peritonitis. EXTREMITITES: No clubbing, cyanosis, or edema. Objective - Vital Signs Vital signs: Vital Signs Temp 97.9 F 02/14/17 04:00 Pulse 84 02/14/17 04:00 Resp 16 02/14/17 04:00 BP 138/78 02/14/17 04:00 Pulse Ox 96 02/14/17 04:00 Intake & Output 02/13/17 02/14/17 02/14/17 18:59 06:59 18:59 Intake Total 1720 Output Total 3250 1500 Balance -1530 -1500 Weight 100 kg Intake: Intake, IV Titration 1000 Amount Sodium Chloride 0.9% 1, 1000 000 ml @ 125 mls/hr IV . Q8H [facility] Rx#:[id number] Oral 720 Output: Urine 3250 1500 Other: Voiding Method Indwelling Catheter Indwelling Catheter # Voids 1 - Labs CBC & Chem 7: 02/13/17 05:37 02/14/17 06:43 Labs: Abnormal Lab Results - Last 24 Hours (Table) 02/14/17 Range/Units 06:43 Chloride 110 H (98-107) mmol/L Carbon Dioxide 21 L (22-30) mmol/L BUN 25 H (9-20) mg/dL Creatinine 1.88 H (0.66-1.25) mg/dL Calcium 8.1 L (8.4-10.2) mg/dL Assessment and Plan Plan: Assessment: #1. Nonoliguric acute kidney injury mostly prerenal secondary to hypotension and further worsened with the use of hydrochlorothiazide as well as NSAIDs. Urinalysis is quite benign. No evidence of hydronephrosis. Improving. Creatinine was 8.8 on admission and is down to 1.88 today. #2. Hypotension related to antihypertensives. Cortisol level 9. #3. Metabolic acidosis secondary to acute kidney injury. Improved. #4. Mild hyperkalemia secondary to acute kidney injury and metabolic acidosis. Plan: Decreased rate of normal saline to 75 mL an hour. Avoid nephrotoxic agents and hypotensive episodes. Diuretics held at this time. Continue oral sodium bicarbonate supplementation - dose decreased. Low potassium diet. Repeat electrolytes in the morning. Stable to be discharged home from nephrology standpoint. He may resume atenolol but continue to hold VALDEMAR inhibitor and thiazide diuretic for now. He' ll need to follow-up as an outpatient in the next 2 weeks.
[2017-02-14] MEDS: IPRATROPIUM-ALBUTEROL 3 ML NEB INHALATION SCH ×2 (08:57→13:09)
[2017-02-14 15:25] VITALS: PULSE 83
[2017-02-14 17:53] VITALS: BP 139/83; TEMP 98.3
--- NOTE | 2017-02-14 18:54 | P.DS ---
Providers Date of admission: 02/12/17 00:38 Expected date of discharge: 02/14/17 Attending physician: Ashish Castaneda Consults: 02/12/17 00:39 Consult Physician Routine Consulting Provider: Morena Tian Consult Reason/Comments: acute renal failure Do you want consulting provider notified?: Yes 02/12/17 14:15 Consult Physician Routine Consulting Provider: Jesi Cortez Consult Reason/Comments: depression, med changes Do you want consulting provider notified?: Yes Primary care physician: Ashish Castaneda - Discharge Diagnosis(es) (1) Acute renal failure Significantly improved General: [Patient awake, alert and oriented times 3. Patient in no acute distress.] HEENT: [PERRL. EOMI. No pharyngeal erythema or exudate.] Neck: [No adenopathy.] Cardiac: [Heart regular in rate and rhythm. No S3. No S4. No clicks, rubs. No murmur.] Lungs: [Clear to auscultation bilaterally.] Abdomen: [No mass. No organomegaly. Bowel sounds presnt and normoactive in all 4 quadrants.] Extremes: [No edema no cyanosis no claudication normal pulses] : [] Musculoskeletal: [No joint erythema, edema or tenderness.] Skin: [No rash.] Neurologic: [No lateralizing deficits. CN II - XII grossly intact.] Lymphatic: [No adenopathy.] Current Visit: Yes Status: Acute Patient Condition at Discharge: Stable Plan - Discharge Summary New Discharge Prescriptions: New clonazePAM [KlonoPIN] 1 mg PO BID #60 tablet Mirtazapine [Remeron] 15 mg PO HS #30 tab No Action Umeclidinium [place] [Incruse Ellipta] 62.5 mcg INHALATION RT-DAILY Albuterol Inhaler [Ventolin Hfa Inhaler] 1 - 2 puff INHALATION RT-Q6H PRN PRN Reason: Shortness Of Breath Albuterol Nebulized [Ventolin Nebulized] 2.5 mg INHALATION RT-Q4H PRN PRN Reason: Shortness Of Breath Budesonide/Formoterol Fumarate [Symbicort 160-4.5 Mcg Inhaler] 2 puff INHALATION RT-BID Discharge Medication List Albuterol Inhaler [Ventolin Hfa Inhaler] 1 - 2 puff INHALATION RT-Q6H PRN [History] Albuterol Nebulized [Ventolin Nebulized] 2.5 mg INHALATION RT-Q4H PRN 06/21/16 [ History] Umeclidinium [place] [Incruse Ellipta] 62.5 mcg INHALATION RT-DAILY 06/21/16 [ History] Budesonide/Formoterol Fumarate [Symbicort 160-4.5 Mcg Inhaler] 2 puff INHALATION RT-BID 02/11/17 [History] Mirtazapine [Remeron] 15 mg PO HS #30 tab 02/14/17 [Rx] clonazePAM [KlonoPIN] 1 mg PO BID #60 tablet 02/14/17 [Rx] Follow up Appointment(s)/Referral(s): [facility] [Outside] - 02/18/17 11:30 am (02.18.2017 at 11:30 am with Cisco Trujillo) Ashish Castaneda MD [Primary Care Provider] - 1-2 days Activity/Diet/Wound Care/Special Instructions: We'll make referral to a therapist as an outpatient
[2017-02-14] MEDS ORDERED: MIRTAZAPINE 15 MG TAB PO SCH (21:00)
[2017-02-14] MEDS ORDERED: clonazePAM 1 MG TAB PO SCH (21:00)
== END 2017-02-14 20:38 | disposition home or self-care (01) | DRG 683 ==
LOC: EC 21:41 → 6SEL 02-12 00:38
PROVIDERS: ADMIT Family Medicine; ATTEND Family Medicine
DX: N17.9 Acute kidney failure, unspecified (principal); E87.2 Acidosis; I95.9 Hypotension, unspecified; E86.0 Dehydration; E86.1 Hypovolemia; E87.5 Hyperkalemia; I10 Essential (primary) hypertension; F10.21 Alcohol dependence, in remission; T50.2X5A Adverse effect of carbonic-anhydrase inhibitors, benzothiadiazides and other diuretics, initial encounter; T43.225A Adverse effect of selective serotonin reuptake inhibitors, initial encounter; T37.0X5A Adverse effect of sulfonamides, initial encounter; T46.4X5A Adverse effect of angiotensin-converting-enzyme inhibitors, initial encounter; T39.315A Adverse effect of propionic acid derivatives, initial encounter; R55 Syncope and collapse; E78.5 Hyperlipidemia, unspecified; J44.9 Chronic obstructive pulmonary disease, unspecified; F32.9 Major depressive disorder, single episode, unspecified; D64.9 Anemia, unspecified; F41.9 Anxiety disorder, unspecified; R29.6 Repeated falls; R53.1 Weakness; F17.200 Nicotine dependence, unspecified, uncomplicated; Z91.81 History of falling; Z56.0 Unemployment, unspecified; Z79.51 Long term (current) use of inhaled steroids; Z79.899 Other long term (current) drug therapy; Z91.5 Personal history of self-harm; Z81.8 Family history of other mental and behavioral disorders; Z87.828 Personal history of other (healed) physical injury and trauma; Z86.19 Personal history of other infectious and parasitic diseases; Z79.1 Long term (current) use of non-steroidal anti-inflammatories (NSAID)
CPT/HCPCS: 36415; 51798; 71010; 76770; 80048; 80053; 80320; 81001; 82533; 82570; 83605; 83735; 83935; 84133; 84300; 84484; 85025; 85379; 85610; 85730; 93005; 94640

== ENCOUNTER 2017-02-20 21:25 | Emergency (ER) | payer OTHER ==
[2017-02-20 21:31] VITALS: BP 144/91; PULSE 91; RESP 18; TEMP 97.2
--- NOTE | 2017-02-20 21:52 | ED ---
Lower Extremity Injury HPI - General Chief Complaint: Extremity Injury, Lower Stated Complaint: Foot Pain Time Seen by Provider: 02/20/17 21:39 Source: patient, RN notes reviewed, old records reviewed Mode of arrival: ambulatory Limitations: no limitations - History of Present Illness Initial Comments: 61-year-old male presents the ED chief complaint of left foot pain for the past 2 days. He reports he does not remember doing anything specifically to cause the pain. He states that he woke up with the pain. He denies any previous injuries to the foot. He does have a history of acute kidney injury recently. He denies any other associated symptoms with the foot pain. He states is worse with ambulation. Denies any peripheral paresthesias. He states the pain is over the entire foot but is worse over the dorsum of the foot and extends all the way around the ankle. Patient denies any recent fever, chills, shortness of breath, chest pain, back pain, abdominal pain, nausea vomiting, numbness or tingling, dysuria or hematuria, constipation or diarrhea, headaches or visual changes, or any other current symptoms - Related Data Home Medications Medication Instructions Recorded Confirmed Albuterol Inhaler [Ventolin Hfa 1 - 2 puff INHALATION RT-Q6H PRN 06/21/16 Inhaler] Albuterol Nebulized [Ventolin 2.5 mg INHALATION RT-Q4H PRN 06/21/16 02/11/17 Nebulized] Umeclidinium [place] [Incruse 62.5 mcg INHALATION RT-DAILY 06/21/16 02/11/17 Ellipta] Budesonide/Formoterol Fumarate 2 puff INHALATION RT-BID 02/11/17 02/11/17 [Symbicort 160-4.5 Mcg Inhaler] Previous Rx's Medication Instructions Recorded Mirtazapine [Remeron] 15 mg PO HS #30 tab 02/14/17 clonazePAM [KlonoPIN] 1 mg PO BID #60 tablet 02/14/17 Acetaminophen-Codeine 300-30mg 1 tab PO Q8H PRN #10 tablet 02/20/17 [Tylenol #3] Allergies Allergy/AdvReac Type Severity Reaction Status Date / Time No Known Allergies Allergy Verified 02/20/17 21:31 Review of Systems ROS Statement: Those systems with pertinent positive or pertinent negative responses have been documented in the HPI. ROS Other: All systems not noted in ROS Statement are negative. Past Medical History Past Medical History: COPD, Hyperlipidemia, Hypertension Additional Past Medical History / Comment(s): Psychiatric history History of Any Multi-Drug Resistant Organisms: None Reported Past Surgical History: Orthopedic Surgery Additional Past Surgical History / Comment(s): Lt knee arthroscopy. surgical repair of neck laceration Past Anesthesia/Blood Transfusion Reactions: No Reported Reaction Past Psychological History: No Psychological Hx Reported, Anxiety, Depression Smoking Status: Current every day smoker Past Alcohol Use History: Heavy Past Drug Use History: None Reported - Past Family History Mother Family Medical History: No Reported History General Exam - General Exam Comments Initial Comments: This is a 61-year-old male. No acute distress. Limitations: no limitations General appearance: alert, in no apparent distress Head exam: Present: atraumatic, normocephalic, normal inspection Eye exam: Present: normal appearance, PERRL, EOMI. Absent: scleral icterus, conjunctival injection, periorbital swelling ENT exam: Present: normal exam, mucous membranes moist Neck exam: Present: normal inspection. Absent: tenderness, meningismus, lymphadenopathy Respiratory exam: Present: normal lung sounds bilaterally. Absent: respiratory distress, wheezes, rales, rhonchi, stridor Cardiovascular Exam: Present: regular rate, normal rhythm, normal heart sounds. Absent: systolic murmur, diastolic murmur, rubs, gallop, clicks GI/Abdominal exam: Present: soft, normal bowel sounds. Absent: distended, tenderness, guarding, rebound, rigid Extremities exam: Present: normal inspection, full ROM, normal capillary refill. Absent: tenderness, pedal edema, joint swelling, calf tenderness Left Upper Leg exam: Present: normal inspection, full ROM Knee exam: Present: normal inspection, full ROM Lower Leg exam: Present: normal inspection, full ROM Ankle exam: Present: normal inspection, full ROM, tenderness (Patient reports tenderness over the lateral medial malleolus. Mild erythema over the dorsum of the foot extending to the ankle.) Foot/Toe exam: Present: full ROM, tenderness, erythema (Patient is mild erythema over the dorsum of the foot.). Absent: normal inspection, swelling, abrasion Neurovascular tendon exam: Present: no vascular compromise Gait: observed and limited by pain Back exam: Present: normal inspection Neurological exam: Present: alert, oriented X3, CN II-XII intact Psychiatric exam: Present: normal affect, normal mood Skin exam: Present: warm, dry, intact, normal color. Absent: rash Course Vital Signs 02/20/17 21:29 Temperature 97.2 F L Pulse Rate 91 Respiratory 18 Rate Blood Pressure 144/91 O2 Sat by Pulse 98 Oximetry Medical Decision Making - Medical Decision Making 61-year-old male chief complaint she is a left foot pain. He reports that it radiates around the entire ankle. He states is worse with ambulation. Lab work was reviewed and showed no elevation in white blood cell or uric acid. Patient x-ray was reviewed shows no fracture. Given patient's history of acute kidney injury and is concerning to give him NSAIDs as this could exacerbate his worsening kidney function. Patient was given Tylenol with Codeine starter pack. Discussed rest, ice and elevate the foot. Discussed following up with primary care provider. Discussed possibility of still being an acute gout exacerbation without showing abnormal lab work at this time. Patient agrees to treatment plan will comply. Return parameters were discussed. - Lab Data Result diagrams: 02/20/17 21:50 Lab Results 02/20/17 02/20/17 Range/Units 21:50 21:50 WBC 7.8 (3.8-10.6) k/uL RBC 3.35 L (4.30-5.90) m/uL Hgb 11.0 L (13.0-17.5) gm/dL Hct 32.5 L (39.0-53.0) % MCV 97.0 (80.0-100.0) fL MCH 32.8 (25.0-35.0) pg MCHC 33.8 (31.0-37.0) g/dL RDW 14.3 (11.5-15.5) % Plt Count 305 (150-450) k/uL Neutrophils % 68 % Lymphocytes % 19 % Monocytes % 7 % Eosinophils % 4 % Basophils % 1 % Neutrophils # 5.3 (1.3-7.7) k/uL Lymphocytes # 1.5 (1.0-4.8) k/uL Monocytes # 0.5 (0-1.0) k/uL Eosinophils # 0.3 (0-0.7) k/uL Basophils # 0.1 (0-0.2) k/uL Uric Acid 6.0 (3.5-8.5) mg/dL Disposition Clinical Impression: Left foot pain Disposition: HOME SELF-CARE Condition: Good Instructions: Arthralgia (ED) Additional Instructions: Is advised to rest, ice, and elevate extremity. Take pain medication as directed. Return to the emergency department if any alarming signs or symptoms occur. Prescriptions: Acetaminophen-Codeine 300-30mg [Tylenol #3] 1 tab PO Q8H PRN #10 tablet PRN Reason: Pain Referrals: Ashish Castaneda MD [Primary Care Provider] - 1-2 days Time of Disposition: 22:48
[2017-02-20 22:06] LABS: Basophils # (A) 0.1 k/uL (0-0.2); Basophils % (A) 1 %; CH 32.3; CHCM 33.4; Eosinophils # (A) 0.3 k/uL (0-0.7); Eosinophils % (A) 4 %; HCT 32.5 % (39.0-53.0); HDW 2.84; Luc # (Auto) 0.16; Luc % (Auto) 2; Lymphocytes # (A) 1.5 k/uL (1.0-4.8); Lymphocytes % (A) 19 %; MCH 32.8 pg (25.0-35.0); MCHC 33.8 g/dL (31.0-37.0); Mean Platelet Volume 7.9; Monocytes # (A) 0.5 k/uL (0-1.0); Monocytes % (A) 7 %; Neutrophils # (A) 5.3 k/uL (1.3-7.7); Neutrophils % (A) 68 %; RBC 3.35 m/uL (4.30-5.90); RDW 14.3 % (11.5-15.5); WBC 7.8 k/uL (3.8-10.6)
[2017-02-20] MEDS ORDERED: ACET/COD 300 MG/30 MG STARTER PACK 6 TAB BTL PO STA (22:33)
--- NOTE | 2017-02-20 22:41 | XR ---
EXAM: XR Left Foot Complete, 3 or More Views CLINICAL HISTORY: Reason: Pain TECHNIQUE: Frontal, lateral and oblique views of the left foot. COMPARISON: No relevant prior studies available. FINDINGS: Bones/joints: No acute fracture or malalignment. Soft tissues: Unremarkable. No radiopaque foreign body. IMPRESSION: No acute fracture or malalignment.
--- NOTE | 2017-02-20 22:42 | US ---
EXAM: US Duplex Left Lower Extremity Veins CLINICAL HISTORY: Reason: Pain TECHNIQUE: The lower extremity deep venous system is examined utilizing real time linear array sonography with graded compression, doppler sonography and color-flow sonography. COMPARISON: No relevant prior studies available. FINDINGS: Deep veins: Unremarkable. Normal compression and response to augmentation. Superficial veins: Unremarkable as visualized. Soft tissues: No acute findings. IMPRESSION: No evidence of deep venous thrombosis in the left lower extremity.
== END 2017-02-20 23:00 | disposition home or self-care (01) ==
LOC: EC 21:25
DX: M79.672 Pain in left foot (principal); J44.9 Chronic obstructive pulmonary disease, unspecified; F17.200 Nicotine dependence, unspecified, uncomplicated; Z79.52 Long term (current) use of systemic steroids; Z79.899 Other long term (current) drug therapy
CPT/HCPCS: 36415; 84550; 85025; 99284

== ENCOUNTER → 2017-06-10 | Outpatient (CLI) | payer OTHER ==
[2017-06-10 12:22] LABS: CH 28.3; CHCM 30.9; HCT 48.7 % (39.0-53.0); HDW 2.33; HGB 15.4 gm/dL (13.0-17.5); Hypochromasia Slight; MCHC 31.6 g/dL (31.0-37.0); MCV 91.8 fL (80.0-100.0); Mean Platelet Volume 7.6; RDW 15.9 % (11.5-15.5); WBC 11.5 k/uL (3.8-10.6)
[2017-06-10 12:32] LABS: Appearance,Urine Clear (Clear); Bacteria,Urine Rare /hpf; Bilirubin,Urine Negative (Negative); Glucose,Urine (UA) 1+ (Negative); Ketones,Urine Negative (Negative); Leukocyte Esterase,Urine Negative (Negative); Mucus,Urine Occasional /hpf; Nitrite,Urine Negative (Negative); PH, Urine 5.5 (5.0-8.0); Particle Count 8368; Protein,Urine 1+ (Negative); RBC,Urine 1 /hpf (0-5); Specific Gravity,Urine 1.021 (1.001-1.035); Squamous Epithelial Cell,Urine <1 /hpf (0-4); UA Billing (MACRO vs. MICRO) MICRO; WBC,Urine 3 /hpf (0-5)
[2017-06-10 12:37] LABS: Anion Gap 9 mmol/L; Blood Urea Nitrogen 13 mg/dL (9-20); Calcium 9.2 mg/dL (8.4-10.2); Carbon Dioxide 26 mmol/L (22-30); Chloride 104 mmol/L (98-107); Glucose 156 mg/dL (74-99); Magnesium 1.8 mg/dL (1.6-2.3); Non-African American GFR(MDRD) >60 (>60 ml/min/1.73 sqM); Phosphorus 3.4 mg/dL (2.5-4.5); Sodium 139 mmol/L (137-145); Uric Acid 7.8 mg/dL (3.5-8.5)
[2017-06-10 13:47] LABS: 24-hr Urine Specific Gravity 1.013 (1.001-1.035)
[2017-06-10 19:57] LABS: Iron Saturation 18.05 (15.00-50.00)
== END | disposition home or self-care (01) ==
LOC: LABWHC1 11:44
PROVIDERS: ATTEND Nurse Practitioner Family
DX: E55.9 Vitamin D deficiency, unspecified (principal); E21.3 Hyperparathyroidism, unspecified; M10.9 Gout, unspecified; N39.0 Urinary tract infection, site not specified; N17.9 Acute kidney failure, unspecified; D64.9 Anemia, unspecified; R80.9 Proteinuria, unspecified
CPT/HCPCS: 36415; 80048; 81001; 81050; 82306; 82728; 83540; 83550; 83735; 83970; 84100; 84156; 84550; 85027

== ENCOUNTER → 2017-07-24 | Outpatient (CLI) | payer OTHER ==
[2017-07-24 15:56] LABS: CH 29.7; CHCM 33.4; HCT 43.6 % (39.0-53.0); HDW 2.32; HGB 14.8 gm/dL (13.0-17.5); MCH 30.2 pg (25.0-35.0); MCHC 33.9 g/dL (31.0-37.0); MCV 89.1 fL (80.0-100.0); Mean Platelet Volume 7.4; RBC 4.89 m/uL (4.30-5.90); RDW 15.4 % (11.5-15.5); WBC 9.2 k/uL (3.8-10.6)
[2017-07-24 16:13] LABS: Potassium 4.7 mmol/L (3.5-5.1)
[2017-07-24 16:15] LABS: Anion Gap 11 mmol/L; Blood Urea Nitrogen 16 mg/dL (9-20); Calcium 9.9 mg/dL (8.4-10.2); Carbon Dioxide 26 mmol/L (22-30); Chloride 98 mmol/L (98-107); Glucose 132 mg/dL (74-99); Magnesium 1.9 mg/dL (1.6-2.3); Non-African American GFR(MDRD) >60 (>60 ml/min/1.73 sqM); Phosphorus 4.1 mg/dL (2.5-4.5); Sodium 135 mmol/L (137-145); Uric Acid 8.7 mg/dL (3.5-8.5)
[2017-07-24 17:35] LABS: Appearance,Urine Clear (Clear); Bilirubin,Urine Negative (Negative); Glucose,Urine (UA) Negative (Negative); Ketones,Urine Negative (Negative); Leukocyte Esterase,Urine Negative (Negative); Nitrite,Urine Negative (Negative); Protein,Urine Negative (Negative); Specific Gravity,Urine 1.009 (1.001-1.035); UA Billing (MACRO vs. MICRO) CHEM; Urobilinogen,Urine <2.0 mg/dL (<2.0)
[2017-07-25 01:04] LABS: Iron Saturation 35.44 (15.00-50.00); Iron(FE) 112 ug/dL (65-175); Total Iron Binding Capacity 316 ug/dL (228-460)
[2017-07-25 01:57] LABS: ANA w/Reflex to Titer NEGATIVE (NEGATIVE)
[2017-07-25 11:35] LABS: Free Kappa Lt Chain Qnt, Serum 1.45 mg/dL (0.33-1.94)
[2017-07-25 14:02] LABS: C-ANCA <1:20 Titer (<1:20); P-ANCA <1:20 Titer (<1:20)
[2017-07-25 14:32] LABS: Mis test requested (Non-blood) UPEP
== END | disposition home or self-care (01) ==
LOC: LABWHC1 15:29
PROVIDERS: ATTEND Nurse Practitioner Family
DX: E55.9 Vitamin D deficiency, unspecified (principal); M10.9 Gout, unspecified; N17.9 Acute kidney failure, unspecified; D50.9 Iron deficiency anemia, unspecified; R80.9 Proteinuria, unspecified; R73.9 Hyperglycemia, unspecified
CPT/HCPCS: 36415; 80048; 81003; 82306; 82570; 82728; 83036; 83516; 83540; 83550; 83735; 83883; 83970; 84100; 84156; 84166; 84550; 85027; 86038; 86160; 86162; 86225; 86255; 86334

== ENCOUNTER 2017-09-25 08:03 | Day surgery (SDC) | payer OTHER ==
[2017-09-22 09:43] VITALS: BMI 33.0
[~2017-09-25 08:03] MED LIST: LACTATED RINGERS 1,000 ML IV SCH
[2017-09-25 08:12] VITALS: RESP 16; TEMP 97.5
[2017-09-25 08:44] LABS: Glucose,Whole Blood 132 mg/dL (75-99)
[2017-09-25] MEDS ORDERED: PROPOFOL 10 MG/ML 20 ML VIAL IV ONE (09:29)
[2017-09-25] MEDS ORDERED: LIDOCAINE 1% INJ 10MG/ML (20 ML MDV) ONE (09:29)
[2017-09-25 10:23] VITALS: BP 118/76; PULSE 66
--- NOTE | 2017-09-25 10:34 | P.PCN ---
Date of Procedure: 09/25/17 Procedure(s) Performed: Procedure: Colonoscopy and polypectomy. Preoperative diagnosis: Screening for neoplasia, patient has history of polyps. Postoperative diagnosis: 1, Sigmoid diverticulosis with no evidence of acute diverticulitis or strictures. 2. Multiple polyps snared, around the hepatic flexure and rectum, but no large polyps or cancer. Preparation: HalfLytely prep. Sedation: Was provided by anesthesia. Brief clinical history: The patient is a 61-year-old male who is scheduled for this evaluation because of history of polyps for screening for neoplasia. He had two prior exams the last was around 5 years ago. He has no abdominal complaints, bleeding or anemia. Procedure: With the patient on his left lateral decubitus position and after informed consent and adequate sedation, the perianal area was inspected and it did not show any fissures or fistulas. There were no masses felt on digital rectal examination. The Olympus CFQ 160L video colonoscope was then inserted in the rectum in the usual fashion and advanced to the cecum. There were several diverticular orifices seen scattered in the sigmoid with no evidence of acute diverticulitis or strictures. The mucosa appeared healthy. 3 polyps were noted, 1 small polyp in the rectum close to the rectosigmoid junction and two around the hepatic flexure 1 small and 1 small to medium in size which were snared and retrieved by suction. There were no large polyps or cancer. I retroflexed endoscope in the rectum before the endoscope was withdrawn. The patient tolerated the procedure well. Plan: The patient was reassured. Discussed dietary measures. He will follow up with you as planned and I recommended repeat exam in 5 years.
[2017-09-25 10:46] LABS: Glucose,Whole Blood 148 mg/dL (75-99)
== END 2017-09-25 11:26 | disposition home or self-care (01) ==
LOC: ORWHC2ENDO 08:03
DX: Z12.11 Encounter for screening for malignant neoplasm of colon (principal); D12.3 Benign neoplasm of transverse colon; K62.1 Rectal polyp; K57.30 Diverticulosis of large intestine without perforation or abscess without bleeding; Z86.010 Personal history of colon polyps; E11.9 Type 2 diabetes mellitus without complications; J44.9 Chronic obstructive pulmonary disease, unspecified; I10 Essential (primary) hypertension; E78.5 Hyperlipidemia, unspecified; G47.33 Obstructive sleep apnea (adult) (pediatric); Z79.899 Other long term (current) drug therapy
CPT/HCPCS: 88305; 45385; J2001; J2704

== ENCOUNTER → 2017-10-24 | Outpatient (CLI) | payer OTHER ==
[2017-10-24 11:06] LABS: HCT 43.5 % (39.0-53.0); HGB 14.6 gm/dL (13.0-17.5); MCH 30.9 pg (25.0-35.0); MCHC 33.5 g/dL (31.0-37.0); MCV 92.1 fL (80.0-100.0); Platelet Count 306 k/uL (150-450); RBC 4.72 m/uL (4.30-5.90); RDW 13.5 % (11.5-15.5); WBC 8.7 k/uL (3.8-10.6)
[2017-10-24 11:07] LABS: Appearance,Urine Clear (Clear); Bilirubin,Urine Negative (Negative); Blood,Urine Negative (Negative); Color,Urine Yellow; Glucose,Urine (UA) Negative (Negative); Ketones,Urine Negative (Negative); Leukocyte Esterase,Urine Negative (Negative); Nitrite,Urine Negative (Negative); PH, Urine 5.5 (5.0-8.0); Protein,Urine Trace (Negative); Specific Gravity,Urine 1.021 (1.001-1.035); Urobilinogen,Urine <2.0 mg/dL (<2.0)
[2017-10-24 11:52] LABS: Calcium 9.8 mg/dL (8.4-10.2); Magnesium 1.6 mg/dL (1.6-2.3); Phosphorus 4.2 mg/dL (2.5-4.5); Potassium 4.5 mmol/L (3.5-5.1)
[2017-10-24 12:06] LABS: Creatinine,Urine Random 261.8 mg/dL
[2017-10-24 15:07] LABS: Vitamin D 25 Hydroxy 29.6 ng/mL (30.0-100.0)
[2017-10-24 15:12] LABS: Iron Saturation 34.36 (15.00-50.00)
[2017-10-24 16:17] LABS: Parathyroid Hormone Intact 39.6 pg/mL (14.0-72.0)
[2017-10-24 16:30] LABS: Anti-DNA, DS unit <1.0 IU/mL; DNA Double-Stranded NEGATIVE (NEGATIVE)
[2017-10-24 20:24] LABS: Hemoglobin A1C 6.8 % (4.0-6.0)
[2017-10-27 14:18] LABS: C-ANCA <1:20 Titer (<1:20); P-ANCA <1:20 Titer (<1:20)
== END | disposition home or self-care (01) ==
LOC: LABWHC1 09:53
PROVIDERS: ATTEND Nurse Practitioner Family
DX: N17.9 Acute kidney failure, unspecified (principal); D50.9 Iron deficiency anemia, unspecified; M10.9 Gout, unspecified; E55.9 Vitamin D deficiency, unspecified; N39.0 Urinary tract infection, site not specified; R73.9 Hyperglycemia, unspecified; R80.9 Proteinuria, unspecified
CPT/HCPCS: 36415; 80048; 81003; 82306; 82570; 82728; 83036; 83516; 83540; 83550; 83735; 83883; 83970; 84100; 84156; 84166; 84550; 85027; 86038; 86160; 86162; 86225; 86255; 86334

== ENCOUNTER → 2017-12-01 | Outpatient (CLI) | payer OTHER ==
[2017-11-28 13:26] VITALS: BMI 31.5
[2017-12-01 12:01] VITALS: BP 141/103; PULSE 86; RESP 16; TEMP 98.2
--- NOTE | 2017-12-01 12:13 | P.HPIM ---
History of Present Illness H&P Date: 12/01/17 Chief Complaint: right hip pain This is a 62-year-old patient referred by Dr. Becerra for chronic pain in low back and right hip and right thigh. Patient has been taking medications from primary care physician including Tylenol medications with some relief. Patient denies adverse drug effects from medications. Patient also denies new-onset weakness, bowel/bladder incontinence, or any other signs or symptoms of cauda equina syndrome. There are no signs of acute intoxication, and no indications of medication diversion or overuse. Patient notes that pain worsens significantly with driving and standing for long periods, and improves with rest and medication. Patient has used several types of medications for pain, including NSAIDS, OPIOIDS, TRAMADOL. Patient HAS NOT had surgery. Patient HAS had injections previously from Dr. Becerra. Patient HAS had physical therapy recently without substantial relief. In addition to above, 13-point review of systems is also negative for chest pain , shortness of breath, changes in vision, changes in hearing, new onset weakness , abdominal pain, diarrhea, extreme fatigue, malaise, fever, skin changes, homicidal or suicidal ideation, or bowel or bladder incontinence. Vital Signs: Reviewed in EMR Gen: WDWN, AAOx3, NAD HEENT: NCAT, EOMI, hearing grossly normal Pulm: resp unlabored Abd: soft, NT, ND Neck: supple, trachea midline ROM in flexion lumbar spine: full ROM in extension lumbar spine: reduced Lumbar paravertebral tenderness: neg Facet loading: neg SI joint tenderness: neg Terry's test: + R > L Straight leg raise: neg Lower extremity: decreased ROM R hip in abduction and extension Past Medical History Past Medical History: COPD, Diabetes Mellitus, Hyperlipidemia, Hypertension, Renal Disease Additional Past Medical History / Comment(s): Painful rt hip, Hx Acute kidney injury January 2017-resolved,colon polyps History of Any Multi-Drug Resistant Organisms: None Reported Past Surgical History: Orthopedic Surgery Additional Past Surgical History / Comment(s): Lt knee arthroscopy. surgical repair of neck laceration. Uvula removal. Pain procedure. colonoscopy Past Anesthesia/Blood Transfusion Reactions: No Reported Reaction, Family History of Problems w/ Anesthesia Additional Past Anesthesia/Blood Transfusion Reaction / Comment(s): daughter post op [place] Smoking Status: Former smoker - Past Family History Mother Family Medical History: No Reported History Medications and Allergies Home Medications Medication Instructions Recorded Confirmed Type Albuterol Inhaler [Ventolin Hfa 1 - 2 puff INHALATION RT-Q6H PRN 06/21/16 History Inhaler] Umeclidinium [place] [Incruse 62.5 mcg INHALATION RT-DAILY 06/21/16 12/01/17 History Ellipta] Budesonide/Formoterol Fumarate 2 puff INHALATION RT-BID 02/11/17 12/01/17 History [Symbicort 160-4.5 Mcg Inhaler] Atenolol [Tenormin] 25 mg PO QAM 09/22/17 12/01/17 History DULoxetine HCL [Cymbalta] 30 mg PO QAM 09/22/17 12/01/17 History Lisinopril [Prinivil] 10 mg PO QAM 09/22/17 12/01/17 History Pravastatin Sodium [Pravachol] 40 mg PO DAILY 09/22/17 12/01/17 History amLODIPine BESYLATE [Norvasc] 2.5 mg PO QAM 09/22/17 12/01/17 History clonazePAM [KlonoPIN] 0.5 mg PO BID 09/22/17 12/01/17 History metFORMIN HCL [Glucophage] 500 mg PO BID 09/22/17 12/01/17 History Acetaminophen [Tylenol Arthritis] 2 tab PO BID PRN 12/01/17 12/01/17 History Allergies Allergy/AdvReac Type Severity Reaction Status Date / Time No Known Allergies Allergy Verified 12/01/17 11:40 Results Comments: MRI right hip demonstrates abnormal areas of diminished T1 and increased T2 signal involving the supracondylar surfaces of the weightbearing portion of the acetabulum as well as supracondylar region of the proximal right femoral head. Finding is consistent with subchondral injury. There is also right-sided iliopsoas bursitis. Assessment and Plan (1) Hip osteoarthritis Current Visit: Yes Status: Chronic Code(s): M16.9 - OSTEOARTHRITIS OF HIP, UNSPECIFIED SNOMED Code(s): 759439613 (2) Chronic pain syndrome Current Visit: Yes Status: Chronic Code(s): G89.4 - CHRONIC PAIN SYNDROME SNOMED Code(s): 638033512 Plan: Plan: 1. Explanation: Opioid and psychological risk scores were reviewed. Diagnoses , prognoses, and multiple treatment options including but not limited to physical therapy, interventional therapies, adjuvant medical therapies, narcotic medication therapies, and surgery were discussed with the patient and all questions were answered to the patient's satisfaction. 2. Opioid agreement: no opioids prescribed today 3. Counseling: The patient was counseled extensively on BODY MASS INDEX, EXERCISE. Specifically, the patient was instructed regarding the importance of weight control, and exercise in the context of both chronic pain and overall health. 4. Procedures: diagnostic R hip joint injection x 2, consider hip RFA in future 5. Consultations: none 6. Investigations: none 7. Medications: none prescribed 8. Morphine equivalents per day prescribed: zero 9. Disposition: f/u for procedure as scheduled Time with Patient: Greater than 30
== END | disposition home or self-care (01) ==
LOC: PNWHC3 11:31
PROVIDERS: ATTEND Anesthesiology
DX: G89.4 Chronic pain syndrome (principal); M16.9 Osteoarthritis of hip, unspecified; Z87.891 Personal history of nicotine dependence; Z79.1 Long term (current) use of non-steroidal anti-inflammatories (NSAID); Z79.891 Long term (current) use of opiate analgesic; Z79.899 Other long term (current) drug therapy
CPT/HCPCS: 99211

== ENCOUNTER 2017-12-04 08:46 | Day surgery (SDC) | payer OTHER ==
[2017-12-02 12:33] VITALS: BMI 31.5
[2017-12-04 11:45] VITALS: RESP 16; TEMP 97.9
[2017-12-04 12:09] LABS: Glucose,Whole Blood 101 mg/dL (75-99)
--- NOTE | 2017-12-04 12:45 | P.PCN ---
Date of Procedure: 12/04/17 Procedure(s) Performed: Preoperative diagnoses= 1-right hip arthralgia,osteoarthritis of the right hip Postoperative diagnoses= same as preoperative diagnosis. Procedure= Right hip joint steroid injection under fluoroscopic guidance. Anesthesia= local infiltration with lidocaine 1% 4 ml Estimated blood loss=minimal. Procedure indication= the patient had a history of severe chronic Right hip pain , unresponsive to conservative treatment. Procedure description= the patient was seen and identified in the preoperative holding area, risks and benefits and alternative of the procedure and possible complications discussed with the patient, and he agreed with the preceding, patient signed the consent , and vital signs were monitored and were stable throughout the procedure, patient was placed in the supine position or table and the right hip area was prepped and draped with a sterile fashion, vital signs were closely monitored during the procedure, the fluoroscopy camera was placed over the right hip joint and the joint was identified, local infiltration of the skin and subcutaneous tissue with lidocaine 1% 2 mL then a [id number] Quincke-type spinal needle advanced slowly under fluoroscopy and placed in the anterior border of the right hip joint, placement confirmed with AP and lateral view, and after appropriate needle placement confirmed and after negative aspiration for heme and CSF and there was no paresthesia during the injection, 2 ml of Isoviu 200 mg , injected to confirm the needle placement , the 5 ml of Marcaine 0.5% and 40 mg of Kenalog injected after negative aspiration, the needle removed, Patient tolerated the procedure well without any complication, The patient hip are was cleaned and a Band-Aid applied, the patient transported to recovery room in stable condition and he was monitored for 30 minutes before he was discharged home and then patient was reexamined before going home and patient was discharged in stable condition and patient will follow up with the pain clinic in a few weeks
[2017-12-04 13:17] VITALS: BP 140/88; PULSE 70
--- NOTE | 2017-12-04 13:40 | FL ---
EXAMINATION TYPE: FL guided pain mgmt statistic DATE OF EXAM: 12/04/2017 CLINICAL HISTORY: Right hip pain. TECHNIQUE: Fluoroscopy. COMPARISON: None. FINDINGS: Fluoroscopic guidance was provided during pain relief procedure performed by Dr. Garcia . A total of 7 seconds of fluoroscopic time was utilized during the procedure and single spot fluoro scopic image is acquired. Single image acquired shows needle localization towards level of right hip joint. IMPRESSION: As Above.
== END 2017-12-04 13:19 | disposition home or self-care (01) ==
LOC: ORPAIN 08:46
PROVIDERS: ATTEND Specialist
DX: G89.29 Other chronic pain (principal); M16.11 Unilateral primary osteoarthritis, right hip; I10 Essential (primary) hypertension; J44.9 Chronic obstructive pulmonary disease, unspecified; R73.03 Prediabetes
CPT/HCPCS: 20610; J3301; Q9966

== ENCOUNTER 2017-12-07 12:27 | Inpatient (IN) | payer MEDICAID, OTHER ==
[2017-12-07 13:41] LABS: Amphetamine Screen,Urine Not Detected (NotDetected); Barbiturate Screen,Urine Not Detected (NotDetected); Benzodiazepines Screen,Urine Not Detected (NotDetected); Cocaine Screen,Urine Not Detected (NotDetected); Methadone Screen, Urine Not Detected (NotDetected); Opiate Screen,Urine Not Detected (NotDetected); Oxycodone Screen, Urine Not Detected (NotDetected); Phencyclidine Screen,Urine Not Detected (NotDetected); Tricyclic Antidepressant,Urine Not Detected (NotDetected); Urn Cannabinoid Scrn Not Detected (NotDetected)
--- NOTE | 2017-12-07 14:39 | ED ---
Psych HPI - General Chief Complaint: Psychiatric Symptoms Stated Complaint: Mental health Time Seen by Provider: 12/07/17 12:50 Source: patient, RN notes reviewed Mode of arrival: ambulatory Limitations: no limitations - History of Present Illness Initial Comments: 62-year-old male presents emergency department to complaint of depression, suicidal ideation. Patient states she's been having increasing difficulty with his depression. He states that Cymbalta used to keep him stable states that it has not been recently. He has attempted suicide in the past in which he states he slit his neck and he was transferred to [facility]. Patient states that he's been having thoughts of hurting himself again. He has not use any illicit drugs or any alcohol. Patient has been taking his medications as directed. - Related Data Home Medications Medication Instructions Recorded Confirmed Albuterol Inhaler [Ventolin Hfa 1 - 2 puff INHALATION RT-Q6H PRN 06/21/16 Inhaler] Umeclidinium [place] [Incruse 1 puff INHALATION RT-DAILY 06/21/16 12/07/17 Ellipta] Budesonide/Formoterol Fumarate 2 puff INHALATION RT-BID 02/11/17 12/07/17 [Symbicort 160-4.5 Mcg Inhaler] Atenolol [Tenormin] 25 mg PO QAM 09/22/17 12/07/17 DULoxetine HCL [Cymbalta] 30 mg PO QAM 09/22/17 12/07/17 Lisinopril [Prinivil] 10 mg PO QAM 09/22/17 12/07/17 Pravastatin Sodium [Pravachol] 40 mg PO DAILY 09/22/17 12/07/17 amLODIPine BESYLATE [Norvasc] 2.5 mg PO QAM 09/22/17 12/07/17 metFORMIN HCL [Glucophage] 500 mg PO BID 09/22/17 12/07/17 Acetaminophen [Tylenol Arthritis] 2 tab PO Q8H PRN 12/01/17 12/07/17 Diclofenac Sodium Gel [Voltaren 1 applicate TOPICAL QID PRN 12/01/17 12/07/17 Gel] Ferrous Sulfate [Feosol] 325 mg PO DAILY 12/07/17 12/07/17 Mirtazapine [Remeron] 30 mg PO HS 12/07/17 12/07/17 clonazePAM [KlonoPIN] 0.5 mg PO BID 12/07/17 12/07/17 Allergies Allergy/AdvReac Type Severity Reaction Status Date / Time No Known Allergies Allergy Verified 12/07/17 15:13 Review of Systems ROS Statement: Those systems with pertinent positive or pertinent negative responses have been documented in the HPI. ROS Other: All systems not noted in ROS Statement are negative. Past Medical History Past Medical History: COPD, Diabetes Mellitus, Hyperlipidemia, Hypertension, Musculoskeletal Disorder, Renal Disease Additional Past Medical History / Comment(s): Painful rt hip, Hx Acute kidney injury January 2017-resolved,colon polyps History of Any Multi-Drug Resistant Organisms: None Reported Past Surgical History: Orthopedic Surgery Additional Past Surgical History / Comment(s): Lt knee arthroscopy. surgical repair of neck laceration. Uvula removal. Pain procedure. colonoscopy Past Anesthesia/Blood Transfusion Reactions: No Reported Reaction, Family History of Problems w/ Anesthesia Additional Past Anesthesia/Blood Transfusion Reaction / Comment(s): daughter post op [place] Past Psychological History: Anxiety, Depression Smoking Status: Former smoker Past Alcohol Use History: None Reported Past Drug Use History: None Reported - Past Family History Mother Family Medical History: No Reported History General Exam Limitations: no limitations General appearance: alert, in no apparent distress Head exam: Present: atraumatic, normocephalic, normal inspection Eye exam: Present: normal appearance, PERRL, EOMI. Absent: scleral icterus, conjunctival injection, periorbital swelling ENT exam: Present: normal exam, normal oropharynx, mucous membranes moist, TM's normal bilaterally, normal external ear exam Neck exam: Present: normal inspection, full ROM. Absent: tenderness, meningismus, lymphadenopathy Respiratory exam: Present: normal lung sounds bilaterally. Absent: respiratory distress, wheezes, rales, rhonchi, stridor Cardiovascular Exam: Present: regular rate, normal rhythm, normal heart sounds. Absent: systolic murmur, diastolic murmur, rubs, gallop, clicks Neurological exam: Present: alert, oriented X3, CN II-XII intact Psychiatric exam: Present: depressed, flat affect Skin exam: Present: warm, dry, intact, normal color. Absent: rash Course Vital Signs 12/07/17 12:45 Temperature 97.5 F L Pulse Rate 70 Respiratory 18 Rate Blood Pressure 142/83 O2 Sat by Pulse 98 Oximetry Medical Decision Making - Lab Data Lab Results 12/07/17 Range/Units 13:11 Urine Opiates Screen Not Detected (NotDetected) Ur Oxycodone Screen Not Detected (NotDetected) Urine Methadone Screen Not Detected (NotDetected) Ur Propoxyphene Screen Not Detected (NotDetected) Ur Barbiturates Screen Not Detected (NotDetected) U Tricyclic Antidepress Not Detected (NotDetected) Ur Phencyclidine Scrn Not Detected (NotDetected) Ur Amphetamines Screen Not Detected (NotDetected) U Methamphetamines Scrn Not Detected (NotDetected) U Benzodiazepines Scrn Not Detected (NotDetected) Urine Cocaine Screen Not Detected (NotDetected) U Marijuana (THC) Screen Not Detected (NotDetected) Disposition Clinical Impression: Depression, Suicidal ideation Disposition: ADMITTED IP TO THIS [facility] Condition: Stable Referrals: Ashish Castaneda MD [Primary Care Provider] - 1-2 days
[2017-12-07] MEDS ORDERED: MAG HYDROX/AL HYDROX/SIMETH 30 ML CUP PO PRN (15:51)
[2017-12-07] MEDS ORDERED: MAGNESIUM HYDROXIDE 2,400 MG/10 ML CUP PO PRN (15:51)
[2017-12-07] MEDS: metFORMIN 500 MG TAB PO SCH (16:57)
[2017-12-07] MEDS: SYMBICORT 160-4.5 MCG INHALER INHALATION SCH (19:32)
[2017-12-07] MEDS: clonazePAM 0.5 MG TAB PO SCH (21:47)
[2017-12-07] MEDS: ACETAMINOPHEN TAB 325 MG TAB PO PRN (21:47)
[2017-12-08] MEDS ORDERED: DULoxetine HCL 30 MG CAPSULE.DR PO SCH (09:00)
[2017-12-08 09:01] LABS: Basophils # (A) 0.1 k/uL (0-0.2); Basophils % (A) 1 %; Eosinophils # (A) 0.4 k/uL (0-0.7); Eosinophils % (A) 5 %; HCT 40.6 % (39.0-53.0); HGB 14.2 gm/dL (13.0-17.5); Lymphocytes # (A) 1.3 k/uL (1.0-4.8); Lymphocytes % (A) 15 %; MCH 31.3 pg (25.0-35.0); MCV 89.4 fL (80.0-100.0); Mean Platelet Volume 6.8; Monocytes # (A) 0.7 k/uL (0-1.0); Monocytes % (A) 8 %; Neutrophils # (A) 5.8 k/uL (1.3-7.7); Neutrophils % (A) 68 %; Platelet Count 305 k/uL (150-450); RBC 4.54 m/uL (4.30-5.90); RDW 13.2 % (11.5-15.5); WBC 8.6 k/uL (3.8-10.6)
[2017-12-08] MEDS: SYMBICORT 160-4.5 MCG INHALER INHALATION SCH ×2 (09:24→21:09)
[2017-12-08] MEDS: TIOTROPIUM 18 MCG/PUFF INHALER INHALATION SCH ×2 (09:24→13:35)
[2017-12-08 09:40] LABS: ALT 53 U/L (21-72); AST 40 U/L (17-59); Albumin 4.4 g/dL (3.5-5.0); Alkaline Phosphatase 60 U/L (38-126); Anion Gap 15 mmol/L; Blood Urea Nitrogen 13 mg/dL (9-20); Calcium 9.5 mg/dL (8.4-10.2); Carbon Dioxide 24 mmol/L (22-30); Chloride 102 mmol/L (98-107); Cholesterol 235 mg/dL (<200); Glucose 166 mg/dL (74-99); HDL Cholesterol 45 mg/dL (40-60); LDL Cholesterol,Calculated 146 mg/dL (0-99); Potassium 4.7 mmol/L (3.5-5.1); Sodium 141 mmol/L (137-145); Total Bilirubin 0.8 mg/dL (0.2-1.3); Total Protein 7.1 g/dL (6.3-8.2); Triglycerides 220 mg/dL (<150)
[2017-12-08] MEDS: PRAVASTATIN SODIUM 40 MG TAB PO SCH (09:57)
[2017-12-08] MEDS: clonazePAM 0.5 MG TAB PO SCH ×2 (09:57→22:01)
[2017-12-08] MEDS: LISINOPRIL 10 MG TAB PO SCH (09:57)
[2017-12-08] MEDS: amLODIPine 2.5 MG TAB PO SCH (09:57)
[2017-12-08] MEDS: ATENOLOL 25 MG TAB PO SCH (09:57)
[2017-12-08] MEDS: metFORMIN 500 MG TAB PO SCH ×2 (09:57→17:56)
[2017-12-08] MEDS: ARIPiprazole 5 MG TAB PO SCH (10:00)
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
[2017-12-08] MEDS: ACETAMINOPHEN TAB 325 MG TAB PO PRN ×2 (10:56→21:59)
[2017-12-08] MEDS: ALBUTEROL INHALER 60 PUFF/8 GM INHALER INHALATION PRN (13:35)
[2017-12-08] MEDS: DICLOFENAC SODIUM GEL 100 GM TUBE TOPICAL PRN (19:28)
[2017-12-08 21:16] LABS: Hemoglobin A1C 6.1 % (4.0-6.0)
[2017-12-08] MEDS: MELATONIN 3 MG TABLET PO SCH (22:00)
[2017-12-09 06:56] VITALS: TEMP 97.8
[2017-12-09] MEDS: PRAVASTATIN SODIUM 40 MG TAB PO SCH (09:23)
[2017-12-09] MEDS: clonazePAM 0.5 MG TAB PO SCH ×2 (09:23→22:17)
[2017-12-09] MEDS: amLODIPine 2.5 MG TAB PO SCH (09:24)
[2017-12-09] MEDS: ATENOLOL 25 MG TAB PO SCH (09:24)
[2017-12-09] MEDS: DICLOFENAC SODIUM GEL 100 GM TUBE TOPICAL PRN ×2 (09:24→22:18)
[2017-12-09] MEDS: metFORMIN 500 MG TAB PO SCH ×2 (09:24→18:01)
[2017-12-09] MEDS: ARIPiprazole 5 MG TAB PO SCH (09:24)
[2017-12-09] MEDS: LISINOPRIL 10 MG TAB PO SCH (09:24)
[2017-12-09] MEDS: ACETAMINOPHEN TAB 325 MG TAB PO PRN ×2 (09:26→22:22)
[2017-12-09] MEDS: TIOTROPIUM 18 MCG/PUFF INHALER INHALATION SCH (09:42)
[2017-12-09] MEDS: ALBUTEROL INHALER 60 PUFF/8 GM INHALER INHALATION PRN (09:42)
[2017-12-09] MEDS: SYMBICORT 160-4.5 MCG INHALER INHALATION SCH ×2 (09:43→19:52)
--- NOTE | 2017-12-09 12:04 | P.PN ---
Progress Note - Text Progress Note Date: 12/09/17 Patient was seen for routine follow-up examination. He took his Abilify yesterday and this morning. He took melatonin last night and slept pretty well the whole night. He feels somewhat tired today. He is wondering if it is the side effect from Abilify. Patient was counseled. He said he feels better, his mood is more even keeled etc. He has been attending groups and he said it has been an eye physical education aide for him. This is a white ambulatory male with good hygiene. He is polite and cooperative. He does not show any psychomotor agitation, retardation or hyperactivity today. His mood is still dysphoric and affect is appropriate. He continues to deny suicide and homicide thoughts. He also denies hallucinations and delusional thinking. He is well oriented with good memory concentration general knowledge etc. Plan: Continue Abilify 5 mg a day, melatonin 3 mg at bedtime, groups and other activities.
--- NOTE | 2017-12-09 13:09 | P.CONS ---
History of Present Illness - Reason for Consult Consult date: 12/09/17 hypertension, copd, dm2 - History of Present Illness Bogdan is a 62-year-old white male well-known to me. 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 He has had depression in the past and a previous suicide attempt. He has been treating with professional counseling. Indicates most frequently was on Cymbalta for his symptoms. He reports he just has not been working for him. He became more symptomatic and came to the emergency room for treatment. Medically he denies any significant symptoms. He notes his blood pressure was elevated since he's been here. He denies any chest pains, pressures, shortness of breath, nausea, vomiting, diarrhea, constipation, or other complaints at this time, other than psychiatric issues. Review of Systems All systems: negative Past Medical History Past Medical History: COPD, Diabetes Mellitus, Hyperlipidemia, Hypertension, Musculoskeletal Disorder, Renal Disease Additional Past Medical History / Comment(s): Painful rt hip, Hx Acute kidney injury January 2017-resolved,colon polyps History of Any Multi-Drug Resistant Organisms: None Reported Past Surgical History: Orthopedic Surgery Additional Past Surgical History / Comment(s): Lt knee arthroscopy. surgical repair of neck laceration. Uvula removal. Pain procedure. colonoscopy Past Anesthesia/Blood Transfusion Reactions: No Reported Reaction, Family History of Problems w/ Anesthesia Additional Past Anesthesia/Blood Transfusion Reaction / Comm: daughter post op [place] Past Psychological History: Anxiety, Depression Smoking Status: Former smoker Past Alcohol Use History: None Reported Past Drug Use History: None Reported - Past Family History Mother Family Medical History: No Reported History Medications and Allergies Home Medications Medication Instructions Recorded Confirmed Type Albuterol Inhaler [Ventolin Hfa 1 - 2 puff INHALATION RT-Q6H PRN 06/21/16 History Inhaler] Umeclidinium [place] [Incruse 1 puff INHALATION RT-DAILY 06/21/16 12/07/17 History Ellipta] Budesonide/Formoterol Fumarate 2 puff INHALATION RT-BID 02/11/17 12/07/17 History [Symbicort 160-4.5 Mcg Inhaler] Atenolol [Tenormin] 25 mg PO QAM 09/22/17 12/07/17 History DULoxetine HCL [Cymbalta] 30 mg PO QAM 09/22/17 12/07/17 History Lisinopril [Prinivil] 10 mg PO QAM 09/22/17 12/07/17 History Pravastatin Sodium [Pravachol] 40 mg PO DAILY 09/22/17 12/07/17 History amLODIPine BESYLATE [Norvasc] 2.5 mg PO QAM 09/22/17 12/07/17 History metFORMIN HCL [Glucophage] 500 mg PO BID 09/22/17 12/07/17 History Acetaminophen [Tylenol Arthritis] 2 tab PO Q8H PRN 12/01/17 12/07/17 History Diclofenac Sodium Gel [Voltaren 1 applicate TOPICAL QID PRN 12/01/17 12/07/17 History Gel] Ferrous Sulfate [Feosol] 325 mg PO DAILY 12/07/17 12/07/17 History Mirtazapine [Remeron] 30 mg PO HS 12/07/17 12/07/17 History clonazePAM [KlonoPIN] 0.5 mg PO BID 12/07/17 12/07/17 History Allergies Allergy/AdvReac Type Severity Reaction Status Date / Time No Known Allergies Allergy Verified 12/07/17 15:13 Physical Exam Vitals: Vital Signs Temp Pulse Resp BP 12/09/17 09:24 107 H 20 133/82 12/09/17 06:55 97.8 F 83 18 140/74 12/08/17 17:58 82 20 136/91 GENERAL: Well-appearing, well-nourished and in no acute distress. HEAD: Atraumatic, normocephalic. EYES: Pupils equal round and reactive to light, extraocular movements intact, sclera anicteric, conjunctiva are normal. ENT:nares patent, oropharynx clear without exudates. Moist mucous membranes. NECK: Normal range of motion, supple without lymphadenopathy or JVD, no thyromegaly LUNGS: Breath sounds clear to auscultation bilaterally and equal. No wheezes rales or rhonchi. HEART: Regular rate and rhythm without murmurs, rubs or gallops.S1S2 Normal ABDOMEN: Soft, nontender, normoactive bowel sounds. No guarding, no rebound. No masses appreciated. EXTREMITIES: Normal range of motion, no pitting or edema. No clubbing or cyanosis. NEUROLOGICAL: Cranial nerves II through XII grossly intact. Normal speech, normal gait. PSYCH: sad mood, normal affect. SKIN: Warm, Dry, normal turgor, no rashes or lesions noted. Results CBC & Chem 7: 12/08/17 08:38 12/08/17 08:38 Labs: Abnormal Lab Results - Last 24 Hours (Table) 12/08/17 Range/Units 08:38 Hemoglobin A1c 6.1 H (4.0-6.0) % Assessment and Plan Plan: Depression: Currently he is being seen by psychiatry. He is on Abilify. Hypertension: He'll remain on his amlodipine, atenolol and lisinopril. History of renal failure: We will utilize Tylenol or Voltaren gel for pain at this time. Type 2 diabetes: We'll continue on metformin. COPD: He'll continue on albuterol, Symbicort, and Spiriva inpatient. Hyperlipidemia: We'll continue on pravastatin. DVT prophylaxis: He is ambulating quite adequately. GI prophylaxis: None apparently needed this time. We'll monitor Thank you for allowing me to participate in Bogdan's care. His blood pressure seems better controlled. Most likely the stress of his admission cause it to be elevated. We'll ask for daily Accu-Cheks. LDL is 146 and compliance with Pravastatin may not be great. His A1c is 6.1, indicating good control. We will follow him with you as needed.
[2017-12-09] MEDS: MELATONIN 3 MG TABLET PO SCH (22:17)
[2017-12-10] MEDS: amLODIPine 2.5 MG TAB PO SCH (08:29)
[2017-12-10] MEDS: ARIPiprazole 5 MG TAB PO SCH (08:29)
[2017-12-10] MEDS: ATENOLOL 25 MG TAB PO SCH (08:29)
[2017-12-10] MEDS: clonazePAM 0.5 MG TAB PO SCH (08:29)
[2017-12-10] MEDS: LISINOPRIL 10 MG TAB PO SCH (08:29)
[2017-12-10] MEDS: PRAVASTATIN SODIUM 40 MG TAB PO SCH (08:29)
[2017-12-10] MEDS: metFORMIN 500 MG TAB PO SCH (08:29)
[2017-12-10] MEDS: DICLOFENAC SODIUM GEL 100 GM TUBE TOPICAL PRN (08:31)
[2017-12-10] MEDS: ACETAMINOPHEN TAB 325 MG TAB PO PRN (08:32)
[2017-12-10] MEDS: TIOTROPIUM 18 MCG/PUFF INHALER INHALATION SCH (08:50)
[2017-12-10] MEDS: SYMBICORT 160-4.5 MCG INHALER INHALATION SCH (08:51)
[2017-12-10 10:15] VITALS: BP 135/78; PULSE 120; RESP 18
--- NOTE | 2017-12-10 11:14 | P.DS ---
Providers Date of admission: 12/07/17 15:31 Expected date of discharge: 12/10/17 Attending physician: Josie Duncan Consults: 12/07/17 15:51 Consult Physician Routine Consulting Provider: Ashish Castaneda Consult Reason/Comments: Follow Up H & P Do you want consulting provider notified?: Yes Primary care physician: Ashish Castaneda Hospital Course: Patient had his psychiatric evaluation, physical examination and psychosocial evaluation. After psychiatric evaluation it was agreed for him to start on Abilify 5 mg a day and melatonin 3 mg at bedtime and to discontinue Cymbalta. Patient slept well and got along well with other patients and staff members. He attended groups and participated regularly. He continued to be free of suicide thoughts and his mood has been stable. He also agreed to continue with outpatient treatment. In view of all these it was agreed to discharge him. Condition on discharge this is a white ambulatory male with good hygiene. He is polite and cooperative. He does not show any psychomotor agitation or retardation. He does not show any hyperactivity either. His mood is euthymic and affect is appropriate. He continues to deny suicide and homicide thoughts, hallucinations and delusional thinking. He is well oriented with good memory concentration general fund of knowledge etc. His insight and judgment are adequate. Diagnosis on discharge: Other specified bipolar and related disorder F 31. NKDA. COPD. Hypertension. Hyper lipidemia. Chronic right hip and right knee pain. Patient was advised and agreed to take his medications as prescribed, not to drink alcohol or use drugs, not to drive or operate missionary if he feels sleepy, to call his psychiatrist or therapist if he developed suicidal thoughts and if he cannot get hold of them to go to nearest ER. Plan - Discharge Summary New Discharge Prescriptions: New ARIPiprazole [Abilify] 5 mg PO DAILY 30 Days #30 tab Mag Hydrox/Al Hydrox/Simeth [Maalox] 30 ml PO Q4HR PRN cup PRN Reason: Gi Upset Tiotropium 18 Mcg/Puff [Spiriva] 1 puff INHALATION RT-DAILY inhaler Continue Umeclidinium [place] [Incruse Ellipta] 1 puff INHALATION RT-DAILY Albuterol Inhaler [Ventolin Hfa Inhaler] 1 - 2 puff INHALATION RT-Q6H PRN PRN Reason: Shortness Of Breath Budesonide/Formoterol Fumarate [Symbicort 160-4.5 Mcg Inhaler] 2 puff INHALATION RT-BID metFORMIN HCL [Glucophage] 500 mg PO BID amLODIPine BESYLATE [Norvasc] 2.5 mg PO QAM Pravastatin Sodium [Pravachol] 40 mg PO DAILY Lisinopril [Prinivil] 10 mg PO QAM Atenolol [Tenormin] 25 mg PO QAM Acetaminophen [Tylenol Arthritis] 2 tab PO Q8H PRN PRN Reason: Pain Diclofenac Sodium Gel [Voltaren Gel] 1 applicate TOPICAL QID PRN PRN Reason: Pain Discontinued DULoxetine HCL [Cymbalta] 30 mg PO QAM Mirtazapine [Remeron] 30 mg PO HS clonazePAM [KlonoPIN] 0.5 mg PO BID Ferrous Sulfate [Feosol] 325 mg PO DAILY Discharge Medication List Albuterol Inhaler [Ventolin Hfa Inhaler] 1 - 2 puff INHALATION RT-Q6H PRN [History] Umeclidinium [place] [Incruse Ellipta] 1 puff INHALATION RT-DAILY 06/21/16 [ History] Budesonide/Formoterol Fumarate [Symbicort 160-4.5 Mcg Inhaler] 2 puff INHALATION RT-BID 02/11/17 [History] Atenolol [Tenormin] 25 mg PO QAM 09/22/17 [History] Lisinopril [Prinivil] 10 mg PO QAM 09/22/17 [History] Pravastatin Sodium [Pravachol] 40 mg PO DAILY 09/22/17 [History] amLODIPine BESYLATE [Norvasc] 2.5 mg PO QAM 09/22/17 [History] metFORMIN HCL [Glucophage] 500 mg PO BID 09/22/17 [History] Acetaminophen [Tylenol Arthritis] 2 tab PO Q8H PRN 12/01/17 [History] Diclofenac Sodium Gel [Voltaren Gel] 1 applicate TOPICAL QID PRN 12/01/17 [ History] ARIPiprazole [Abilify] 5 mg PO DAILY 30 Days #30 tab 12/10/17 [Rx] Mag Hydrox/Al Hydrox/Simeth [Maalox] 30 ml PO Q4HR PRN cup 12/10/17 [Rx] Tiotropium 18 Mcg/Puff [Spiriva] 1 puff INHALATION RT-DAILY inhaler 12/10/17 [ Rx] Follow up Appointment(s)/Referral(s): [facility] [Outside] - 12/18/17 10:00 am (Pablo Grubbs ) Ashish Castaneda MD [Primary Care Provider] - 1-2 days
== END 2017-12-10 12:52 | disposition home or self-care (01) | DRG 881 ==
LOC: EC 12:27 → 3MHU 15:31
PROVIDERS: ADMIT Psychiatry & Neurology Psychiatry; ATTEND Psychiatry & Neurology Psychiatry
DX: F32.9 Major depressive disorder, single episode, unspecified (principal); R45.851 Suicidal ideations; F41.9 Anxiety disorder, unspecified; J44.9 Chronic obstructive pulmonary disease, unspecified; E78.5 Hyperlipidemia, unspecified; E11.9 Type 2 diabetes mellitus without complications; G89.29 Other chronic pain; I10 Essential (primary) hypertension; M25.551 Pain in right hip; G47.30 Sleep apnea, unspecified; M25.561 Pain in right knee; Z87.891 Personal history of nicotine dependence; Z79.51 Long term (current) use of inhaled steroids; Z82.49 Family history of ischemic heart disease and other diseases of the circulatory system; Z79.899 Other long term (current) drug therapy; Z91.5 Personal history of self-harm; Z79.84 Long term (current) use of oral hypoglycemic drugs; Z86.010 Personal history of colon polyps
CPT/HCPCS: 80053; 80061; 80306; 82075; 83036; 84443; 85025; 94640; 99285

== ENCOUNTER 2018-01-01 09:30 | Day surgery (SDC) | payer OTHER ==
[2017-12-25 13:47] VITALS: BMI 31.5
[2018-01-01] MEDS ORDERED: LIDOCAINE 1% 20 ML VIAL (10MG/ML) FOR IV START INTRADERMA ONE (09:38)
[2018-01-01] MEDS ORDERED: LACTATED RINGERS 1,000 ML IV SCH (09:45)
[2018-01-01 09:48] VITALS: TEMP 98
[2018-01-01 09:52] LABS: Glucose,Whole Blood 116 mg/dL (75-99)
[2018-01-01 10:18] VITALS: PULSE 75
[2018-01-01 10:27] VITALS: BP 139/85; RESP 16
--- NOTE | 2018-01-01 13:24 | FL ---
Fluoroscopy HISTORY: Pain 18 seconds fluoroscopy time supplied to the referring clinician. 2 intraoperative C-arm images docum ent the procedure. See dictated report from anesthesia.
--- NOTE | 2018-01-06 15:03 | P.PCN ---
Date of Procedure: 01/01/18 Surgeon: Thaddeus Ruiz Pathology: none sent Condition: stable Disposition: PACU Description of Procedure: PREOPERATIVE DIAGNOSIS: 1-hip OA POSTOPERATIVE DIAGNOSIS:. 1-hip OA PROCEDURES: Right hip injection with fluoroscopy ANESTHESIA: Conscious sedation; local with 1% lidocaine EBL: Minimal. PROCEDURE INDICATIONS: This patient with a history of R hip pain secondary to osteoarthritis; no use of blood thinners. PROCEDURE DESCRIPTION: The patient was seen and identified in the preoperative area. Risks, benefits, complications, and alternatives were discussed with the patient. The patient agreed to proceed with the procedure and signed the consent. IV was started, and vital signs were stable. Patient was taken to the OR and time out was completed.The patient was placed in the prone position on procedure table and a pillow was placed under the abdomen to reduce lumbar lordosis. The right hip area was prepped and draped in the usual sterile fashion. Critical pause was taken. Vital signs were closely monitored during the procedure. The fluoroscopic camera was placed in AP view and the R femur was identified. Subsequently, after localization with 1% lidocaine, a 22-gauge 3.5 inch spinal needle was introduced toward the femoral neck under direct fluoroscopic visualization. The hip capsule was felt with the needle and passed through. Subsequently, after negative aspiration, 2 ml of Isovue-200 contrast dye was injected demonstrating an arthrogram. 7 ml of a solution containing total 6 mL of 0.5% preservative-free ropivacaine mixed with 40 mg of Kenalog was injected after repeat negative aspiration for CSF, blood, and air and negative for paresthesia. The patient had relief within 30 seconds of injection. Needle was withdrawn intact. Skin was cleansed, and bandages were applied. COMPLICATIONS: None. COMMENTS: DISPOSITION / PLANS: The patient was placed in a supine position and transferred to the recovery area in a stable condition for observation and was discharged from the recovery room after meeting discharge criteria. Home discharge instructions given to the patient by the staff. The patient was reexamined prior to discharge. The patient will schedule a follow up in the clinic in 2-4 weeks to discuss efficacy.
== END 2018-01-01 10:34 | disposition home or self-care (01) ==
LOC: ORPAIN 09:30
PROVIDERS: ATTEND Anesthesiology
DX: M16.11 Unilateral primary osteoarthritis, right hip (principal); I10 Essential (primary) hypertension; J44.9 Chronic obstructive pulmonary disease, unspecified
CPT/HCPCS: 20610; J3301; Q9966; 99152

== ENCOUNTER → 2018-01-15 | Outpatient (CLI) | payer OTHER ==
[2018-01-15 13:57] VITALS: BP 162/107; PULSE 80; RESP 16
--- NOTE | 2018-01-17 18:45 | P.PN ---
Progress Note - Text Progress Note Date: 01/15/18 This is 62 years old male with a chronic history of severe right hip pain, diagnosed with osteoarthritis of the right hip, arthralgia of the right hip, status post right hip steroid injections 2, and he get 20-25% decrease in his pain level after each injection, the patient came in, for follow-up visit ,and to discuss the next step of treatment, I explained to the patient that in view that he did not get more than 50% improvement in his pain level ,after each injection, he will not be a good candidate to have radiofrequency ablation of the right hip joint, and patient had to do either medication management versus surgical interventions, patient reported that, he prefers to have hip surgery , and he will discuss this option with orthopedic surgeon, patient will follow up with the pain clinic when necessary, because from an interventional pain management perspective, he is not candidate for any interventional pain management.
== END | disposition home or self-care (01) ==
LOC: PNWHC3 12:26
PROVIDERS: ATTEND Specialist
DX: G89.29 Other chronic pain (principal); M16.11 Unilateral primary osteoarthritis, right hip
CPT/HCPCS: 99211

== ENCOUNTER → 2019-04-12 | Outpatient (CLI) | payer BC ==
[2019-04-12 19:27] LABS: African American GFR (CKD) 83.5 (60.0-200.0); Albumin 4.7 g/dL (3.80-4.90); Albumin/Globulin Ratio 2.04 (1.60-3.17); Anion Gap 12.8 mmol/L (4.00-12.00); BUN/Creat Ratio 12.73 Ratio (12.00-20.00); Calcium 9.8 mg/dL (8.7-10.3); Carbon Dioxide 26.2 mmol/L (21.6-31.8); Chol/HDL Ratio 4.33; Globulin 2.3 g/dL (1.6-3.3); Potassium 4.3 mmol/L (3.5-5.5); Total Bilirubin 0.9 mg/dL (0.2-1.2)
[2019-04-12 20:42] LABS: Hemoglobin A1C 6.4 % (4.0-6.0)
== END | disposition home or self-care (01) ==
LOC: LABWHC1 14:06
PROVIDERS: ATTEND Family Medicine
DX: S46.011A Strain of muscle(s) and tendon(s) of the rotator cuff of right shoulder, initial encounter (principal); E11.9 Type 2 diabetes mellitus without complications; E78.5 Hyperlipidemia, unspecified
CPT/HCPCS: 36415; 80053; 80061; 83036

== ENCOUNTER → 2021-10-05 | Outpatient (CLI) | payer BC ==
--- NOTE | 2021-10-05 20:28 | PE ---
EXAMINATION TYPE: PET CT fusion skull to thigh DATE OF EXAM: 10/05/2021 COMPARISON: Low-dose lung screening CT September 11, 2021 HISTORY: Abnormal CT, solitary pulmonary nodule. TECHNIQUE: Following the intravenous administration of 11.53 mCi of F-18 FDG, whole body images are performed from the skull base to the midthigh. Images are reviewed on the computer in the coronal, a xial, and sagittal planes. Reconstructed rotating images are created on independent workstation and reviewed on the computer. A localization and attenuation correction CT is performed in conjunction with the PET scan. Blood glucose level equals 79. SCAN: Initial Scan FINDINGS: SKULL BASE AND NECK: Mild uptake inferior tongue base axial image 38 favored physiologic given symme try. Mild asymmetric uptake left vocal cord sites axial image [address] correlate. Correlate clinically. CHEST, MEDIASTINUM, AND HILAR REGION: Mild underlying emphysematous changes are redemonstrated. Few s cattered small nodules redemonstrated including stable 9 x 8 mm posterior right upper lobe nodule axi al image 77 which is ametabolic. No metabolic nodules or lymph nodes. ABDOMEN AND PELVIS: Nonspecific bowel uptake. Normal excretion. No adrenal masses. No abnormal hyperm etabolic uptake. OSSEOUS STRUCTURES: No abnormal hypermetabolic uptake. OTHER CT: [id number] calcified plaque bilateral carotid bulb level left greater than right. Low lung volumes with moderate coronary artery calcification. There is exophytic 3.9 cm thin-walled c yst posteriorly left kidney. Diverticula in the left and sigmoid colon. Metallic hardware right hip a rthroplasty causes streak artifact limiting evaluation of pelvic structures. Multilevel facet arthrop athy mid to lower lumbar spine. IMPRESSION: No suspicious hypermetabolic uptake in the dominant 9 x 8 mm posterior inferior right upp er lobe nodule. Advise CT follow-up in 6-12 months time to document stability.
== END | disposition home or self-care (01) ==
LOC: RADPETMAIN 07:37
PROVIDERS: ATTEND Internal Medicine Critical Care Medicine
DX: R91.8 Other nonspecific abnormal finding of lung field (principal)
CPT/HCPCS: 78815; A9552

== ENCOUNTER 2022-04-11 19:12 | Emergency (ER) | payer BC ==
[2022-04-11 19:22] VITALS: TEMP 98.3
--- NOTE | 2022-04-12 00:38 | XR ---
EXAMINATION TYPE: XR chest 2V DATE OF EXAM: 04/12/2022 COMPARISON: 04/19/2019 HISTORY: Chest pain TECHNIQUE: 2 views FINDINGS: Heart is normal. Lungs are clear of infiltrate. No heart failure. There are no hilar masses . Costophrenic angles are clear. Bony thorax is intact. IMPRESSION: No active cardiopulmonary disease. Normal heart. No change.
[2022-04-12 01:25] LABS: Basophils # (A) 0.1 k/uL (0-0.2); Basophils % (A) 1 %; Eosinophils # (A) 0.3 k/uL (0-0.7); Eosinophils % (A) 3 %; HCT 41.1 % (39.0-53.0); HGB 13.3 gm/dL (13.0-17.5); Lymphocytes # (A) 1.3 k/uL (1.0-4.8); Lymphocytes % (A) 13 %; MCH 32.3 pg (25.0-35.0); MCHC 32.5 g/dL (31.0-37.0); MCV 99.4 fL (80.0-100.0); Monocytes # (A) 0.8 k/uL (0-1.0); Monocytes % (A) 8 %; Neutrophils # (A) 7.2 k/uL (1.3-7.7); Neutrophils % (A) 72 %; Platelet Count 191 k/uL (150-450); RBC 4.13 m/uL (4.30-5.90); RDW 14.5 % (11.5-15.5); WBC 9.9 k/uL (3.8-10.6)
[2022-04-12 01:36] LABS: Albumin 4.7 g/dL (3.5-5.0); Calcium 9.5 mg/dL (8.4-10.2); Potassium 4.3 mmol/L (3.5-5.1); Total Bilirubin 0.4 mg/dL (0.2-1.3); Total Protein 7.3 g/dL (6.3-8.2)
--- NOTE | 2022-04-12 01:42 | ED ---
General Adult HPI - General Chief complaint: Dizziness Stated complaint: Dizziness,chest pains Time Seen by Provider: 04/12/22 00:55 Source: patient, RN notes reviewed, old records reviewed Mode of arrival: ambulatory Limitations: no limitations - History of Present Illness Initial comments: 66-year-old male presenting for evaluation of dizziness, lightheadedness and syncopal episode that occurred 2 weeks prior. Patient is a nurse.he states that he had checked his blood pressure after the syncopal episode 2 weeks ago and it was 75 systolic. He thought that he should drink more which he did. He states that he's had some lightheadedness and felt that he should be checked out. He denies chest pain but has pressure or indigestion which is been present for several days. No prior history of CAD. - Related Data Home Medications Medication Instructions Recorded Confirmed Albuterol Inhaler [Ventolin Hfa 1 - 2 puff INHALATION RT-Q6H PRN 06/21/16 01/15/18 Inhaler] Umeclidinium [place] [Incruse 2 puff INHALATION RT-DAILY 06/21/16 01/15/18 Ellipta] Pravastatin Sodium [Pravachol] 40 mg PO DAILY 09/22/17 01/15/18 amLODIPine BESYLATE [Norvasc] 2.5 mg PO QAM 09/22/17 01/15/18 atenoloL [Tenormin] 25 mg PO QAM 09/22/17 01/15/18 lisinopriL [Prinivil] 10 mg PO QAM 09/22/17 01/15/18 metFORMIN HCL [Glucophage] 500 mg PO BID 09/22/17 01/15/18 Acetaminophen [Tylenol Arthritis] 2 tab PO Q8H PRN 12/01/17 01/15/18 Diclofenac Sodium Gel [Voltaren 1 applicate TOPICAL QID PRN 12/01/17 01/15/18 Gel] Budesonide/Formoterol Fumarate 2 puff INHALATION BID 12/25/17 01/15/18 [Symbicort 160-4.5 Mcg Inhaler] Previous Rx's Medication Instructions Recorded ARIPiprazole [Abilify] 5 mg PO DAILY 30 Days #30 tab 12/10/17 Allergies Allergy/AdvReac Type Severity Reaction Status Date / Time No Known Allergies Allergy Verified 04/11/22 19:22 Review of Systems ROS Statement: Those systems with pertinent positive or pertinent negative responses have been documented in the HPI. ROS Other: All systems not noted in ROS Statement are negative. Past Medical History Past Medical History: COPD, Diabetes Mellitus, Hyperlipidemia, Hypertension, Musculoskeletal Disorder, Renal Disease Additional Past Medical History / Comment(s): Painful rt hip, Hx Acute kidney injury January 2017-resolved,colon polyps History of Any Multi-Drug Resistant Organisms: None Reported Past Surgical History: Orthopedic Surgery Additional Past Surgical History / Comment(s): Lt knee arthroscopy. surgical repair of neck laceration. Uvula removal. Pain procedure. colonoscopy Past Anesthesia/Blood Transfusion Reactions: No Reported Reaction, Family History of Problems w/ Anesthesia Additional Past Anesthesia/Blood Transfusion Reaction / Comment(s): daughter post op [place] Past Psychological History: Anxiety, Depression Past Alcohol Use History: None Reported Past Drug Use History: None Reported - Past Family History Mother Family Medical History: No Reported History General Exam Limitations: no limitations General appearance: alert, in no apparent distress Head exam: Present: atraumatic, normocephalic Eye exam: Present: normal appearance, PERRL ENT exam: Present: mucous membranes moist Neck exam: Present: normal inspection. Absent: tenderness, meningismus Respiratory exam: Present: normal lung sounds bilaterally. Absent: respiratory distress, wheezes, rales Cardiovascular Exam: Present: regular rate, normal rhythm GI/Abdominal exam: Present: soft. Absent: distended, tenderness, guarding Extremities exam: Present: normal inspection, normal capillary refill. Absent: pedal edema, calf tenderness Neurological exam: Present: alert, oriented X3, CN II-XII intact. Absent: motor sensory deficit Psychiatric exam: Present: normal affect, normal mood Skin exam: Present: warm, dry, intact. Absent: cyanosis, diaphoretic Course Vital Signs 04/11/22 19:17 Temperature 98.3 F Pulse Rate 81 Respiratory 22 Rate Blood Pressure 163/96 O2 Sat by Pulse 98 Oximetry EKG Findings - EKG Comments: EKG Findings:: EKG: Sinus rhythm rate of 68, WI interval 132, QRS duration 84, QTC [address] segment elevation. Medical Decision Making - Medical Decision Making 66-year-old male with dizziness, lightheadedness. Patient is in sinus rhythm, stable vitals, nonfocal neurologic exam. He was just concerned that he's had some previous acute kidney injury in 1 to make sure his laboratory testing was okay. Labs are unremarkable including negative troponin, normal kidney function, normal CBC. Chest x-ray is clear. Patient is eager for discharge. Return parameters discussed. - Lab Data Result diagrams: 04/12/22 01:06 04/12/22 01:06 Lab Results 04/12/22 04/12/22 04/12/22 Range/Units 01:06 01:06 01:06 WBC 9.9 (3.8-10.6) k/uL RBC 4.13 L (4.30-5.90) m/uL Hgb 13.3 (13.0-17.5) gm/dL Hct 41.1 (39.0-53.0) % MCV 99.4 (80.0-100.0) fL MCH 32.3 (25.0-35.0) pg MCHC 32.5 (31.0-37.0) g/dL RDW 14.5 (11.5-15.5) % Plt Count 191 (150-450) k/uL MPV 8.0 Neutrophils % 72 % Lymphocytes % 13 % Monocytes % 8 % Eosinophils % 3 % Basophils % 1 % Neutrophils # 7.2 (1.3-7.7) k/uL Lymphocytes # 1.3 (1.0-4.8) k/uL Monocytes # 0.8 (0-1.0) k/uL Eosinophils # 0.3 (0-0.7) k/uL Basophils # 0.1 (0-0.2) k/uL PT (9.0-12.0) sec INR (<1.2) APTT (22.0-30.0) sec Sodium 140 (137-145) mmol/L Potassium 4.3 (3.5-5.1) mmol/L Chloride 101 (98-107) mmol/L Carbon Dioxide 26 (22-30) mmol/L Anion Gap 13 mmol/L BUN 18 (9-20) mg/dL Creatinine 1.24 (0.66-1.25) mg/dL Est GFR (CKD-EPI)AfAm 71 (>60 ml/min/1.73 sqM) Est GFR (CKD-EPI)NonAf 61 (>60 ml/min/1.73 sqM) Glucose 98 (74-99) mg/dL Calcium 9.5 (8.4-10.2) mg/dL Total Bilirubin 0.4 (0.2-1.3) mg/dL AST 32 (17-59) U/L ALT 21 (4-49) U/L Alkaline Phosphatase 72 (38-126) U/L Troponin I <0.012 (0.000-0.034) ng/mL Total Protein 7.3 (6.3-8.2) g/dL Albumin 4.7 (3.5-5.0) g/dL 04/12/22 Range/Units 01:22 WBC (3.8-10.6) k/uL RBC (4.30-5.90) m/uL Hgb (13.0-17.5) gm/dL Hct (39.0-53.0) % MCV (80.0-100.0) fL MCH (25.0-35.0) pg MCHC (31.0-37.0) g/dL RDW (11.5-15.5) % Plt Count (150-450) k/uL MPV Neutrophils % % Lymphocytes % % Monocytes % % Eosinophils % % Basophils % % Neutrophils # (1.3-7.7) k/uL Lymphocytes # (1.0-4.8) k/uL Monocytes # (0-1.0) k/uL Eosinophils # (0-0.7) k/uL Basophils # (0-0.2) k/uL PT 10.1 (9.0-12.0) sec INR 0.9 (<1.2) APTT 23.7 (22.0-30.0) sec Sodium (137-145) mmol/L Potassium (3.5-5.1) mmol/L Chloride (98-107) mmol/L Carbon Dioxide (22-30) mmol/L Anion Gap mmol/L BUN (9-20) mg/dL Creatinine (0.66-1.25) mg/dL Est GFR (CKD-EPI)AfAm (>60 ml/min/1.73 sqM) Est GFR (CKD-EPI)NonAf (>60 ml/min/1.73 sqM) Glucose (74-99) mg/dL Calcium (8.4-10.2) mg/dL Total Bilirubin (0.2-1.3) mg/dL AST (17-59) U/L ALT (4-49) U/L Alkaline Phosphatase (38-126) U/L Troponin I (0.000-0.034) ng/mL Total Protein (6.3-8.2) g/dL Albumin (3.5-5.0) g/dL Disposition Clinical Impression: Dizziness Disposition: HOME SELF-CARE Condition: Fair Instructions (If sedation given, give patient instructions): Dizziness (ED) Is patient prescribed a controlled substance at d/c from ED?: No Referrals: Ashish Castaneda MD [Primary Care Provider] - 1-2 days Time of Disposition: 02:15
[2022-04-12 01:51] LABS: INR 0.9 (<1.2); Partial Thromboplastin Time 23.7 sec (22.0-30.0); Prothrombin Time 10.1 sec (9.0-12.0)
[2022-04-12 02:25] VITALS: BP 174/90; PULSE 89; RESP 18
== END 2022-04-12 02:25 | disposition home or self-care (01) ==
LOC: EC 19:12
DX: R42 Dizziness and giddiness (principal); J44.9 Chronic obstructive pulmonary disease, unspecified; E11.9 Type 2 diabetes mellitus without complications; E78.5 Hyperlipidemia, unspecified; I12.9 Hypertensive chronic kidney disease with stage 1 through stage 4 chronic kidney disease, or unspecified chronic kidney disease; N18.9 Chronic kidney disease, unspecified; F41.9 Anxiety disorder, unspecified; F32.A Depression, unspecified; Z79.84 Long term (current) use of oral hypoglycemic drugs; Z79.51 Long term (current) use of inhaled steroids; Z79.899 Other long term (current) drug therapy
CPT/HCPCS: 36415; 71046; 80053; 84484; 85025; 85610; 85730; 93005; 99285

== ENCOUNTER → 2022-04-29 | Outpatient (CLI) | payer BC ==
--- NOTE | 2022-04-29 12:47 | US ---
EXAMINATION TYPE: US thyroid st tissue head/neck DATE OF EXAM: 04/29/2022 COMPARISON: NONE CLINICAL HISTORY: E04.1 nodule left lobe thyroid gland. GLAND SIZE: Right Lobe: 4.7 x 1.7 x 1.5 cm Overall Parenchyma: homogenous Left Lobe: 5.6 x 1.4 x 1.5 cm Overall Parenchyma: homogeneous Isthmus Thickness: 0.3 cm NODULES RIGHT: # of nodules measured on right: 0 LEFT: # of nodules measured on left: 0 ISTHMUS: # of nodules measured in the isthmus: 0 Bilateral neck scanned. Prominent lymph node seen on left. IMPRESSION: No evidence for thyroid nodules. Normal sonographic appearance of the thyroid gland. No masses or lym phadenopathy.
== END | disposition home or self-care (01) ==
LOC: RADUSWWP 12:03
PROVIDERS: ATTEND Family Medicine
DX: E04.1 Nontoxic single thyroid nodule (principal)
CPT/HCPCS: 76536

== ENCOUNTER → 2022-11-18 | Outpatient (CLI) | payer BC ==
--- NOTE | 2022-11-18 14:19 | CT ---
EXAMINATION TYPE: CT chest w con CT DLP: 428.10 mGycm, Automated exposure control for dose reduction was used. DATE OF EXAM: 11/18/2022 1:01 PM COMPARISON: Pet/CT 10/05/2021 CLINICAL INDICATION:Male, 67 years old with history of R91.1, Hx chest nodule, COPD. TECHNIQUE: Multiple axial images were obtained through the chest. Sagittal and coronal reformats were created for review. Contrast used:100 mL of Isovue 300 with IV Contrast Oral contrast used: none. FINDINGS: LUNGS/ PLEURA: Scattered pulmonary nodular densities are stable back to 09/11/2021. No new or enlargin g pulmonary nodules. No focal consolidation, pneumothorax or pleural effusion. Mild paraseptal and ce ntrilobular emphysema changes. AIRWAY: Patent and unremarkable. HEART: Heart is within normal limits for size there is coronary artery cusp patient's and aortic valv e leaflet calcifications. MEDIASTINUM: No gross evidence of adenopathy. VASCULATURE: No aortic aneurysm. MUSCULOSKELETAL: No acute osseous abnormalities SOFT TISSUES/LYMPH NODES: Unremarkable. LOWER NECK: No significant findings. UPPER ABDOMEN: No significant findings. IMPRESSION: 1. Scattered pulmonary nodular densities are stable back to 09/11/2021. No new or enlarging pulmonary nodules. Consider follow-up in one year. 2. Mild emphysema changes.
== END | disposition home or self-care (01) ==
LOC: RADCTMAIN 12:02
PROVIDERS: ATTEND Internal Medicine Critical Care Medicine
DX: J43.2 Centrilobular emphysema (principal); R91.8 Other nonspecific abnormal finding of lung field
CPT/HCPCS: 82565; 84520; 71260; 36415; Q9967

== ENCOUNTER → 2023-02-19 | Outpatient (CLI) | payer MEDICARE ==
--- NOTE | 2023-02-19 10:12 | US ---
EXAMINATION TYPE: US Aorta Screening DATE OF EXAM: 02/19/2023 COMPARISON: Pet/CT 10/05/2021 CLINICAL INDICATION: Male, 67 years old with history of Z13.6 ENCOUNTER FOR SCREENING FOR CARDIOVASCU LAR D; SCREENING AFTER SYNCOPE EPISODE TECHNIQUE: Multiple sonographic images of the abdominal aorta are obtained. FINDINGS: EXAM MEASUREMENTS: Abdominal Aorta: Proximal: 2.1X2.1 Mid: 1.2X1.3 Distal: 1.1X1.1 Bifurcation: RT: 0.6X0.6CM LT:0.6X0.6CM [employer] NOTES: EXAM LIMITED DUE TO PATIENT BODY HABITUS AND OVERLYING BOWEL GAS IMPRESSION: No evidence for aortic aneurysm.
== END | disposition home or self-care (01) ==
LOC: RADUSWWP 09:21
PROVIDERS: ATTEND Family Medicine
DX: Z13.6 Encounter for screening for cardiovascular disorders (principal); R55 Syncope and collapse
CPT/HCPCS: 76706

== ENCOUNTER 2023-10-14 07:13 | Day surgery (SDC) | payer MEDICARE ==
[2023-10-10 15:30] VITALS: BMI 30.1
[2023-10-14 07:41] LABS: Glucose,Whole Blood 117 mg/dL (70-110)
[2023-10-14] MEDS: LACTATED RINGERS 1,000 ML IV SCH (07:41)
[2023-10-14 07:50] VITALS: RESP 16; TEMP 97
[2023-10-14] MEDS ORDERED: PROPOFOL 10 MG/ML 20 ML VIAL IV ONE (07:58)
--- NOTE | 2023-10-14 08:01 | P.GSHP ---
History of Present Illness H&P Date: 10/14/23 Chief Complaint: Colon cancer screening 67-year-old male here for colonoscopy. Last colonoscopy 2017. Patient with history of colon polyps. No bowel complaints. No family history of colon cancer. Past Medical History Past Medical History: COPD, Diabetes Mellitus, Hyperlipidemia, Hypertension, Musculoskeletal Disorder, Renal Disease Additional Past Medical History / Comment(s): Painful rt hip, Hx Acute kidney injury January 2017-resolved,colon polyps History of Any Multi-Drug Resistant Organisms: MRSA Date of last positivie culture/infection: "years ago" MDRO Source:: "trunk" Past Surgical History: Orthopedic Surgery Additional Past Surgical History / Comment(s): Lt knee arthroscopy total rt hip. surgical repair of neck laceration. Uvula removal. Pain procedure. colonoscopy Past Anesthesia/Blood Transfusion Reactions: No Reported Reaction, Family History of Problems w/ Anesthesia Additional Past Anesthesia/Blood Transfusion Reaction / Comment(s): daughter post op [place] Smoking Status: Current every day smoker - Past Family History Mother Family Medical History: No Reported History Medications and Allergies Home Medications Medication Instructions Recorded Confirmed Type Albuterol Inhaler [Ventolin Hfa 1 - 2 puff INHALATION RT-Q6H PRN 06/21/16 10/14/23 History Inhaler] atenoloL [Tenormin] 12.5 mg PO QAM 09/22/17 10/10/23 History lisinopriL [Prinivil] 5 mg PO QAM 09/22/17 10/10/23 History metFORMIN HCL [Glucophage] 1,500 mg PO QAM 09/22/17 10/10/23 History Acetaminophen [Tylenol Arthritis] 2 tab PO Q8H PRN 12/01/17 10/10/23 History Budesonide/Formoterol Fumarate 2 puff INHALATION BID 12/25/17 10/10/23 History [Symbicort 160-4.5 Mcg Inhaler] Atorvastatin [Lipitor] 80 mg PO QAM 10/10/23 10/14/23 History Cholecalciferol (Vitamin D3) 2,000 unit PO QAM 10/10/23 10/10/23 History [Vitamin D3 (50 Mcg = 2000 Iu) Chew Tab] FLUoxetine HCL [PROzac] 60 mg PO DAILY 10/10/23 10/10/23 History Spiriva Respiat (Dose Unknown) 2 puff INHALATION HS 10/10/23 History Tamsulosin [Flomax] 0.4 mg PO QAM 10/10/23 10/10/23 History clonazePAM [KlonoPIN] 0.5 mg PO BID 10/10/23 10/10/23 History Allergies Allergy/AdvReac Type Severity Reaction Status Date / Time No Known Allergies Allergy Verified 10/14/23 07:28 Surgical - Exam Vital Signs Temp Pulse Resp BP Pulse Ox 97 F L 66 16 144/79 95 10/14/23 07:32 10/14/23 07:32 10/14/23 07:32 10/14/23 07:32 10/14/23 07:32 Physical exam: General: Well-developed, well-nourished HEENT: Normocephalic, sclerae nonicteric Abdomen: Nontender, nondistended Extremities: No edema Neuro: Alert and oriented Results - Labs Abnormal Lab Results - Last 24 Hours (Table) 10/14/23 Range/Units 07:37 POC Glucose (mg/dL) 117 H (70-110) mg/dL Assessment and Plan (1) Colon cancer screening Narrative/Plan: Will proceed with colonoscopy at this time Current Visit: Yes Status: Acute Code(s): Z12.11 - ENCOUNTER FOR SCREENING FOR MALIGNANT NEOPLASM OF COLON SNOMED Code(s): 461751695
--- NOTE | 2023-10-14 08:12 | P.PCN ---
Date of Procedure: 10/14/23 Procedure(s) Performed: PREOPERATIVE DIAGNOSIS: Colon cancer screening with history of polyps POSTOPERATIVE DIAGNOSIS: Transverse colon polyps, diverticulosis PROCEDURE: Colonoscopy with snare polypectomy ANESTHESIA: MAC SURGEON: Jeff Talbert M.D. SPECIMENS: Transverse colon polyp ENDOSCOPIC PROCEDURE: The patient was placed on the endoscopy table in the left decubitus position. The Olympus colonoscope was inserted into the anus and passed under direct visualization to the base of the cecum. The appendiceal orifice was visualized. From that point the scope was slowly withdrawn inspecting all surfaces carefully. There were no neoplastic inflammatory or polypoid lesions throughout the cecum and ascending colon. In the transverse colon a small polyp was seen and removed using the snare with cautery technique. The remainder of the transverse descending sigmoid and rectum appeared normal. There was mild left-sided diverticulosis. Digital rectal examination was normal. The patient was taken to the recovery room in stable condition per anesthesia guidelines. RECOMMENDATIONS: Await biopsy results. Repeat colonoscopy 5 to 7 years.
[2023-10-14 08:26] VITALS: PULSE 58
[2023-10-14 08:46] LABS: Glucose,Whole Blood 116 mg/dL (70-110)
[2023-10-14 09:01] VITALS: BP 110/63
== END 2023-10-14 09:00 | disposition home or self-care (01) ==
LOC: ORWHC2ENDO 07:13
PROVIDERS: ATTEND Surgery
DX: Z12.11 Encounter for screening for malignant neoplasm of colon (principal); D12.3 Benign neoplasm of transverse colon; K57.30 Diverticulosis of large intestine without perforation or abscess without bleeding; J44.9 Chronic obstructive pulmonary disease, unspecified; I10 Essential (primary) hypertension; E78.5 Hyperlipidemia, unspecified; E11.9 Type 2 diabetes mellitus without complications; F17.210 Nicotine dependence, cigarettes, uncomplicated; F41.9 Anxiety disorder, unspecified; F32.A Depression, unspecified; Z79.51 Long term (current) use of inhaled steroids; Z79.84 Long term (current) use of oral hypoglycemic drugs; Z79.899 Other long term (current) drug therapy; Z86.010 Personal history of colon polyps
CPT/HCPCS: 88305; 45385; J2704

== ENCOUNTER → 2024-02-04 | Outpatient (CLI) | payer MEDICARE ==
[2024-02-05 02:47] LABS: Basophils # (A) 0.14 X 10*3/uL (0.00-0.10); Basophils % (A) 1.1 %; Eosinophils # (A) 0.38 X 10*3/uL (0.04-0.35); Eosinophils % (A) 2.9 %; HGB 13.7 g/dL (13.0-17.0); Lymphocytes # (A) 1.52 X 10*3/uL (0.90-5.00); Lymphocytes % (A) 11.8 %; MCH 31.3 pg (27.0-32.0); MCHC 31.9 g/dL (32.0-37.0); MCV 98.2 FL (80.0-97.0); Mean Platelet Volume 10.4 FL (9.5-12.2); Monocytes # (A) 1.34 X 10*3/uL (0.20-1.00); Monocytes % (A) 10.4 %; NRBC Per 100 WBC 0 X 10*3/uL (0.00-0.01); Neutrophils # (A) 9.36 X 10*3/uL (1.80-7.70); Neutrophils % (A) 72.5 %; Platelet Count 223 X 10*3/uL (140-440); RBC 4.38 X 10*6/uL (4.40-5.60); RDW 13.5 % (11.5-14.5); WBC 12.91 X 10*3/uL (4.50-10.00)
[2024-02-05 03:52] LABS: BUN/Creat Ratio 20.18 Ratio (12.00-20.00); Blood Urea Nitrogen 22.2 mg/dL (9.0-27.0); Calcium 9.7 mg/dL (8.7-10.3); Carbon Dioxide 24.3 mmol/L (21.6-31.8); Chloride 100 mmol/L (96-109); Glucose 100 mg/dL (70-110); Potassium 4.6 mmol/L (3.5-5.5); Sodium 136 mmol/L (135-145)
== END | disposition home or self-care (01) ==
LOC: LABWHC1 16:06
PROVIDERS: ATTEND Family Medicine
DX: G43.109 Migraine with aura, not intractable, without status migrainosus (principal); K57.92 Diverticulitis of intestine, part unspecified, without perforation or abscess without bleeding; I10 Essential (primary) hypertension; R19.4 Change in bowel habit
CPT/HCPCS: 36415; 80048; 85025

== ENCOUNTER → 2024-03-26 | Outpatient (CLI) | payer MEDICARE ==
[2024-03-26 16:31] LABS: African American GFR (CKD) 49 (>60 ml/min/1.73 sqM); Blood Urea Nitrogen 26 mg/dL (9-20); Non-African American GFR(CKD) 43 (>60 ml/min/1.73 sqM)
[2024-03-26 17:27] LABS: Basophils # (A) 0.1 k/uL (0-0.2); Basophils % (A) 1 %; Eosinophils # (A) 0.3 k/uL (0-0.7); Eosinophils % (A) 3 %; HCT 39.1 % (39.0-53.0); HGB 12.9 gm/dL (13.0-17.5); Lymphocytes % (A) 11 %; MCH 31.9 pg (25.0-35.0); MCHC 33.1 g/dL (31.0-37.0); MCV 96.4 fL (80.0-100.0); Mean Platelet Volume 7.7; Monocytes # (A) 0.8 k/uL (0-1.0); Monocytes % (A) 9 %; Neutrophils # (A) 7.2 k/uL (1.3-7.7); Neutrophils % (A) 75 %; Platelet Count 247 k/uL (150-450); RBC 4.05 m/uL (4.30-5.90); RDW 13.9 % (11.5-15.5); WBC 9.6 k/uL (3.8-10.6)
--- NOTE | 2024-03-26 17:34 | CT ---
EXAMINATION TYPE: CT abdomen pelvis w con CT DLP: 1950.8 mGycm, Automated exposure control for dose reduction was used. DATE OF EXAM: 03/26/2024 5:17 PM COMPARISON: 10/05/2021 CLINICAL INDICATION: Male, 68 years old with history of K57.92 DVTRCLI OF INTEST, PART UNSP, W/O PERF OR A; Abdominal pain x1 month TECHNIQUE: Axial CT abdomen pelvis w con;Sagittal and coronal reformats were created on a separate w orkstation. Contrast used:80 mL of Isovue 300 with IV Contrast, (none if empty) Oral contrast used: without Oral Contrast (none if empty) FINDINGS: LOWER CHEST: Unremarkable ABDOMEN LIVER: Diffusely hypoattenuating parenchyma. GALLBLADDER AND BILE DUCTS: Unremarkable. PANCREAS: Unremarkable. SPLEEN: Unremarkable. ADRENAL GLANDS: Adrenal nodules measuring 16 and 10 mm. KIDNEYS AND URETERS: No evidence of hydronephrosis or renal calculus. The ureters are unremarkable. Left simple appearing renal cysts. PELVIS BLADDER: Unremarkable REPRODUCTIVE: Prostate is enlarged in size measuring 4.6 cm in transverse dimension. ABDOMEN & PELVIS STOMACH AND BOWEL: No evidence of bowel obstruction. Scattered colonic diverticula. PERITONEUM/RETROPERITONEUM: No evidence of pneumoperitoneum or free fluid. VASCULATURE: No evidence of aortic aneurysm. MUSCULOSKELETAL: No acute osseous abnormalities, right hip arthroplasty with streak artifact.r LYMPH NODES: No gross evidence for lymphadenopathy. SOFT TISSUE/ABDOMINAL WALL: Bilateral fat-containing inguinal hernias right greater than left. IMPRESSION: 1. No evidence for acute abdominal process. 2. Colonic diverticulosis. 3. Fat-containing umbilical hernia. 4. Hepatic steatosis. 5. Prostatomegaly, correlate with serum PSA. 6. Right adrenal nodules which may be slightly increased in size from 2021. Consider MRI adrenal mas s protocol for further evaluation and/or CT adrenal mass protocol.
== END | disposition home or self-care (01) ==
LOC: RADCTMAIN 15:46
PROVIDERS: ATTEND Family Medicine
DX: N18.31 Chronic kidney disease, stage 3a (principal); K57.30 Diverticulosis of large intestine without perforation or abscess without bleeding; K42.9 Umbilical hernia without obstruction or gangrene; K76.0 Fatty (change of) liver, not elsewhere classified; N40.0 Benign prostatic hyperplasia without lower urinary tract symptoms
CPT/HCPCS: 82565; 84520; 85025; 74177; 36415; Q9967